=== PATIENT | male | born 1965 | race Two or more races ===

== ENCOUNTER 2017-03-08 13:20 | Emergency (ER) | payer OTHER ==
[2017-03-08 13:44] VITALS: BP 155/103
--- NOTE | 2017-03-08 14:29 | UC ---
Nanci Hilliard Edward, scribed for Rachel Cota MD on 03/08/17 at 1405 . Lower Extremity/Ankle HPI - HPI Summary HPI Summary: 51 y/o male presents to [facility] with R leg pain immediately s/p a 3 foot feet- first jump into water off of a dock 5 days ago. The pain is constant and waxing and waning, located in the mid-hamstring; it is not waking the patient up at night. The pain is aggravated by walking, sitting down and most aggravated when the patient walks downhill. The patient takes 400-600 mg Ibuprofen every 4-6 hours since the injury, which has not alleviated the pain much. Since the jump, the R leg has felt stiff and cramped. Denies neck and knee pain. Associated sx: ecchymosis and edema over R hamstring, mild back pain, chronic numbness in L hip. SHx spinal fusion (march 2013), shoulder repair. PMHx herniated disk, back problems, arthritis. - History of Current Complaint Chief Complaint: UCLowerExtremity Stated Complaint: LEG CRAMP Time Seen by Provider: 03/08/17 13:56 Hx Obtained From: Patient Onset/Duration: Sudden Onset, Lasting Days - 5 days Aggravating Factor(s): Ambulation, Other - Walking downhill Able to Bear Weight: Yes - Risk Factors Gout Risk Factors: Negative DVT Risk Factors: Negative - Allergies/Home Medications Allergies/Adverse Reactions: Allergies Allergy/AdvReac Type Severity Reaction Status Date / Time Lactose Intolerance Allergy GI Upset Verified 09/14/14 06:52 ENVIRONMENTAL Allergy ITCHY Uncoded 09/14/14 06:52 WATERY EYES PMH/Surg Hx/FS Hx/Imm Hx - Additional Past Medical History Additional PMH: Positive: arthritis, back problems, gout, herniated disk Previously Healthy: No - Past cervical fusion GI/ History: Kidney Stones - Surgical History Surgical History: Yes Surgery Procedure, Year, and Place: APNEA CORRECTION TONSILS & SOFT PALATE. DOUBLE TESTICULOR TORSON. C5-6-7 INFUSION 2012 - Family History Known Family History: Positive: Other - Father of strokes Negative: Hypertension, Diabetes - Social History Alcohol Use: Occasionally Substance Use Type: None Smoking Status (MU): Never Smoked Tobacco Have You Smoked in the Last Year: No Review of Systems Constitutional: Negative Skin: Bruising - Ecchymosis over R hamstring Eyes: Negative ENT: Negative Respiratory: Negative Cardiovascular: Negative Gastrointestinal: Negative Genitourinary: Negative Motor: Negative Neurovascular: Negative Musculoskeletal: Arthralgia - Mild back pain. Chronic L hip pain, Edema - Edema over R hamstring, Myalgia - R hamstring pain, Other: - No neck or knee pain Neurological: Negative Psychological: Negative All Other Systems Reviewed And Are Negative: Yes Physical Exam Triage Information Reviewed: Yes Appearance: Well-Appearing, Pain Distress - mild to moderate with activity Vital Signs: Initial Vital Signs Temp 98.7 F 03/08/17 13:40 Pulse 77 03/08/17 13:40 Resp 18 03/08/17 13:40 BP 155/103 03/08/17 13:40 Pulse Ox 99 03/08/17 13:40 Vital Signs Reviewed: Yes ENT Exam: Normal Neck: Positive: Supple, Nontender Respiratory: Positive: Lungs clear, Normal breath sounds Cardiovascular: Positive: RRR, No Murmur, Pulses Normal Musculoskeletal: Positive: Strength Intact, ROM Limited @ - mild restriction of right knee flexion, Other: - large ecchymosis over 1/3 of hamsting area, tracking to posterior knee. Hamstring insertion intact, able to extend leg, flex knee. Gait antalgic. Neurological: Positive: Alert, Muscle Tone Normal, Fatigued Skin Exam: Other - large ecchymosis Lower Extremity Course/Dx - Course Course Of Treatment: nsaid's and hydocodone for pain control - Differential Dx/Diagnosis Differential Diagnosis/HQI/PQRI: Compartment Syndrome, Contusion, Sprain, Strain Provider Diagnoses: right hamstring teat/strain Discharge - Discharge Plan Condition: Stable Disposition: HOME Prescriptions: Hydrocodone-Acetaminophen [Hydrocodone/Acetaminophen 5-325 mg] 1 tab PO Q6HR PRN #20 tab MDD 4 PRN Reason: Pain Meloxicam 7.5 mg PO BID PRN #40 tab PRN Reason: Pain - Moderate Patient Education Materials: Ecchymosis (ED) Referrals: Nolan Ro MD [Primary Care Provider] - Jax Herr MD [Medical Doctor] - Additional Instructions: You have torn your hamstring. Use regular anti-inflammatories for pain control, but stop if you have any increase in gi side effects. Use hydrocodone in addition as needed. You have a referral to sports medicine for evaluation. Your blood pressure is elevated today; please ensure that you have it rechecked once your pain is controlled. The documentation as recorded by the Nanci hernandez Edward accurately reflects the service I personally performed and the decisions made by me, Rachel Cota MD.
== END 2017-03-08 14:40 | disposition home or self-care (01) ==
LOC: UCEAST 13:20
DX: S76.311A Strain of muscle, fascia and tendon of the posterior muscle group at thigh level, right thigh, initial encounter (principal); W16.612A Jumping or diving into natural body of water striking water surface causing other injury, initial encounter; Y93.39 Activity, other involving climbing, rappelling and jumping off; Y92.838 Other recreation area as the place of occurrence of the external cause; Y99.9 Unspecified external cause status
CPT/HCPCS: 99212; G0463

== ENCOUNTER 2018-03-17 16:06 | Emergency (ER) | payer OTHER ==
[2018-03-17 17:06] LABS: ABS Basophils 0 10^3/ul (0-0.2); ABS Eosinophils 0.1 10^3/ul (0-0.6); ABS Monocytes 0.7 10^3/ul (0-0.8); ABS Nucleated RBC 0 10^3/ul; Hematocrit 43 % (42-52); Hemoglobin 14.7 g/dl (14.0-18.0); Lymphocyte % 26.2 % (25-47); Mean Corpuscular HGB Conc 34 g/dl (31-36); Mean Corpuscular Hemoglobin 30 pg (27-31); Mean Corpuscular Volume 90 fL (80-94); Mean Platelet Volume 10.5 um3 (7.4-10.4); Nucleated Red Blood Cells % 0.1; Platelet Count 158 10^3/ul (150-450); Red Blood Count 4.84 10^6/ul (4.00-5.40); Red Cell Distribution Width 13 % (10.5-15); White Blood Count 3.8 10^3/ul (3.5-10.8)
--- NOTE | 2018-03-17 17:26 | RAD ---
INDICATION: Dizziness and expressive aphasia COMPARISON: None. TECHNIQUE: Contiguous axial sections of the brain were obtained from the skull base to the vertex without contrast. FINDINGS: The ventricles, cisterns and sulci are within normal limits. The norwood-white matter differentiation is adequately maintained and there is no sulcal effacement. No significant focal abnormality or mass effect is present. There is no evidence for intracranial hemorrhage. No significant focal osseous abnormality is present. The visualized portion of the paranasal sinuses appear clear. There is partial effusion of the dependent mastoid air cells bilaterally. IMPRESSION: 1. Partial the dependent effusion of the mastoid air cells bilaterally of uncertain clinical significance. 2. Otherwise no CT apparent acute intracranial abnormalities.
[2018-03-17] MEDS ORDERED: NS 0.9% 1000 ML* 1,000 ML IV ONE (17:37)
[2018-03-17] MEDS ORDERED: Meclizine TAB* 12.5 MG PO ONE (17:37)
--- NOTE | 2018-03-17 17:57 | ED ---
Dizziness - HPI Summary HPI Summary: This is [facility] documenting for attending Orlin To MD. Pt is a 52 y/o M c/o dizziness onset upon waking this AM. Pt says he feels as if he is "drunk". Assoc Sx: Fatigue, weakness. He states that he feels very fatigued and weak despite getting 9-10 hours of sleep the following night. Patiant saw PCP earlier today and was referred to the ED. SHx: No Tobacco or EtOH/drug use FHx: Stroke, HTN. - History Of Current Complaint Chief Complaint: EDNeurologicalDeficit Stated Complaint: DIZZINESS/LIGHTHEADED/FATIGUE Time Seen by Provider: 03/17/18 17:11 Hx Obtained From: Patient Onset/Duration: Still Present Character: Dizzy - Feels as if "drunk" Aggravating Factor(s): Nothing Alleviating Factor(s): Nothing Associated Signs And Symptoms: Positive: Other: - POSITIVE: fatigue. Negative: Fever - Allergies/Home Medications Allergies/Adverse Reactions: Allergies Allergy/AdvReac Type Severity Reaction Status Date / Time lactose Allergy GI Upset Verified 11/26/17 08:41 ENVIRONMENTAL Allergy ITCHY Uncoded 11/26/17 08:41 WATERY EYES Home Medications: Home Medications Multivitamin [Animal Shapes] 2 tab.chew PO DAILY 03/17/18 [History Confirmed ] Omeprazole CAP* [Prilosec CAP* 20 MG] 40 mg PO DAILY 03/17/18 [History Confirmed 03/17/18] PMH/Surg Hx/FS Hx/Imm Hx Endocrine/Hematology History: Denies: Hx Diabetes, Hx Thyroid Disease Cardiovascular History: Denies: Hx Hypertension, Hx Pacemaker/ICD Respiratory History: Reports: Hx Sleep Apnea Denies: Hx Asthma, Hx Chronic Obstructive Pulmonary Disease (COPD) GI History: Reports: Hx Gastroesophageal Reflux Disease Denies: Hx Ulcer History: Reports: Hx Kidney Stones - FAIRLY REGULAR Denies: Hx Renal Disease Musculoskeletal History: Reports: Hx Arthritis, Hx Back Problems - cervical radiculopathy, Hx Gout Denies: Hx Rheumatoid Arthritis Sensory History: Reports: Hx Contacts or Glasses Denies: Hx Hearing Aid Opthamlomology History: Reports: Hx Contacts or Glasses Psychiatric History: Denies: Hx Panic Disorder - Surgical History Surgery Procedure, Year, and Place: APNEA CORRECTION TONSILS & SOFT PALATE. DOUBLE TESTICULOR TORSON. C5-6-7 - FUSION 2012. RIGHT SHOULDER 09/2014 Hx Anesthesia Reactions: No - Immunization History Immunizations Up to Date: Yes Infectious Disease History: No Infectious Disease History: Denies: Hx Clostridium Difficile, Hx Hepatitis, Hx Human Immunodeficiency Virus (HIV), Hx of Known/Suspected MRSA, Hx Shingles, Hx Tuberculosis, Hx Known/ Suspected VRE, Hx Known/Suspected VRSA, History Other Infectious Disease, Traveled Outside the [place] in Last 30 Days - Family History Known Family History: Positive: Other - Father of strokes Negative: Hypertension, Diabetes - Social History Occupation: Employed Full-time Lives: With Family Alcohol Use: Occasionally Substance Use Type: Reports: None Smoking Status (MU): Never Smoked Tobacco Have You Smoked in the Last Year: No Review of Systems Positive: Fatigue, Other - POS: dizziness. Negative: Fever Positive: Weakness All Other Systems Reviewed And Are Negative: Yes Physical Exam - Summary Physical Exam Summary: VITAL SIGNS: Reviewed. GENERAL: Patient is a well-developed and nourished male who is lying comfortable in the stretcher. Patient is not in any acute respiratory distress. HEAD AND FACE: No signs of trauma. No ecchymosis, hematomas or skull depressions. No sinus tenderness. EYES: PERRLA, EOMI x 2, No injected conjunctiva, no nystagmus. No photophobia. EARS: Hearing grossly intact. Ear canals and tympanic membranes are within normal limits. MOUTH: Oropharynx within normal limits. NECK: Supple, trachea is midline, no adenopathy, no JVD, no carotid bruit, no c- spine tenderness, neck with full ROM. No meningeal signs, no Kernig's or brudzinskis signs. CHEST: Symmetric, no tenderness at palpation LUNGS: Clear to auscultation bilaterally. No wheezing or crackles. CVS: Regular rate and rhythm, S1 and S2 present, no murmurs or gallops appreciated. ABDOMEN: Soft, non-tender. No signs of distention. No rebound no guarding, and no masses palpated. Bowel sounds are normal. EXTREMITIES: FROM in all major joints, no edema, no cyanosis or clubbing. NEURO: Alert and oriented x 3. No acute neurological deficits. Speech is normal and follows commands. SKIN: Dry and warm GCS: 15 (unless he states otherwise) Triage Information Reviewed: Yes Vital Signs On Initial Exam: Initial Vitals Temp Pulse Resp BP Pulse Ox 98.2 F 66 17 170/102 99 03/17/18 16:07 03/17/18 16:07 03/17/18 16:07 03/17/18 16:07 03/17/18 16:07 Vital Signs Reviewed: Yes Diagnostics - Vital Signs Vital Signs Temp Pulse Resp BP Pulse Ox 03/17/18 16:07 98.2 F 66 17 170/102 99 - Laboratory Lab Results: Lab Results 03/17/18 03/17/18 Range/Units 16:55 16:55 WBC 3.8 (3.5-10.8) 10^3/ul RBC 4.84 (4.00-5.40) 10^6/ul Hgb 14.7 (14.0-18.0) g/dl Hct 43 (42-52) % MCV 90 (80-94) fL MCH 30 (27-31) pg MCHC 34 (31-36) g/dl RDW 13 (10.5-15) % Plt Count 158 (150-450) 10^3/ul MPV 10.5 H (7.4-10.4) um3 Neut % (Auto) 53.1 (38-83) % Lymph % (Auto) 26.2 (25-47) % [place] % (Auto) 17.6 H (0-7) % Eos % (Auto) 2.0 (0-6) % Baso % (Auto) 1.1 (0-2) % Absolute Neuts (auto) 2.0 (1.5-7.7) 10^3/ul Absolute Lymphs (auto) 1.0 (1.0-4.8) 10^3/ul Absolute Monos (auto) 0.7 (0-0.8) 10^3/ul Absolute Eos (auto) 0.1 (0-0.6) 10^3/ul Absolute Basos (auto) 0 (0-0.2) 10^3/ul Absolute Nucleated RBC 0 10^3/ul Nucleated RBC % 0.1 Sodium 138 (135-145) mmol/L Potassium 3.7 (3.5-5.0) mmol/L Chloride 102 (101-111) mmol/L Carbon Dioxide 28 (22-32) mmol/L Anion Gap 8 (2-11) mmol/L BUN 14 (6-24) mg/dL Creatinine 0.98 (0.67-1.17) mg/dL Est GFR ( Amer) 98.0 (>60) Est GFR (Non-Af Amer) 81.0 (>60) BUN/Creatinine Ratio 14.3 (8-20) Glucose 140 H (70-100) mg/dL Calcium 9.2 (8.6-10.3) mg/dL Total Bilirubin 0.40 (0.2-1.0) mg/dL AST 28 (13-39) U/L ALT 33 (7-52) U/L Alkaline Phosphatase 40 (34-104) U/L Total Protein 7.0 (6.4-8.9) g/dL Albumin 4.3 (3.2-5.2) g/dL Globulin 2.7 (2-4) g/dL Albumin/Globulin Ratio 1.6 (1-3) Result Diagrams: 03/17/18 16:55 03/17/18 16:55 Lab Statement: Any lab studies that have been ordered have been reviewed, and results considered in the medical decision making process. - Radiology CXR Xray Interpretation: No Acute Changes - IMPRESSION: No radiographic evidence of acute cardiopulmonary disease. Radiology Interpretation Completed By: Radiologist - Provider has reviewed report. - CT Brain CT Interpretation: Positive (See Comments) - IMPRESSION: 1. Partial the dependent effusion of the mastoid air cells bilaterally of uncertain clinical significance. 2. Otherwise no CT apparent acute intracranial abnormalities. CT Interpretation Completed By: Radiologist - Provider has reviewed report. - EKG 1621 Cardiac Rate: NL - 67 bpm EKG Rhythm: Sinus Rhythm Dizzy Course/Dx - Course Assessment/Plan: This patient is a 52-year-old male who presents to the emergency department with a chief complaint of having dizziness, fatigue and weakness. Hes been having the symptoms for the past month but today he woke up and he was having dizziness. He reports that he fell drunk. He reported that the room is spinning and not feeling good. Patient had this is symptoms on the day he consulted with the primary care physician and he recommended for the patient to come to the emergency room for further workup and management. In the physical exam the patient is found to be within normal limits he has no acute neurological focal deficits. Blood test results without any significant abnormality. Urinalysis is negative For a UTI. Abdominopelvic CT impression : partially dependent infusions of the mastoid air cells bilaterally of uncertain clinical significance. Otherwise no CT appearance of intracranial abnormalities. In the ED course the patient was found to be hypotensive. The patient doesnt have any history of high blood pressure. I offered him labetalol however the patient declined. Patient reports that he does want to take medications. He was advised of the importance of good control the blood pressure however he reports that he will follow with Dr. Ro his primary care physician in order to discuss about medications for high blood pressure. Patient will be discharged home with follow-up with primary care physician. - Diagnoses Differential Diagnosis/HQI/PQRI: Benign Paroxysmal Positional Vertigo, CVA, Meniere's Disease, Seizure, Transient Ischemic Attack, Vasovagal Reaction Provider Diagnoses: Uncontrolled hypertension, Fatigue Discharge - Sign-Out/Discharge Documenting (check all that apply): Patient Departure - Discharge Plan Condition: Stable Disposition: HOME Patient Education Materials: Chronic Hypertension (ED), Fatigue (ED) Referrals: Nolan Ro MD [Primary Care Provider] - 3 Days Additional Instructions: RETURN TO THE ED FOR ANY WORSENING OR NEW SYMPTOMS. FOLLOW UP WITH YOUR PRIMARY CARE PROVIDER WITHIN ONE WEEK FOR HIGH BLOOD PRESSURE NOTED TODAY. - Billing Disposition and Condition Condition: STABLE Disposition: Home
[2018-03-17 18:24] LABS: Urine Appearance Clear; Urine Blood 1+ (Negative); Urine Color Straw; Urine Ketones Negative (Negative); Urine Protein Negative (Negative); Urine Red Blood Cell Trace(0-2/hpf) (Absent); Urine Specific Gravity 1.006 (1.010-1.030); Urine Urobilinogen Negative (Negative); Urine White Blood Cell Absent (Absent)
[2018-03-17] MEDS ORDERED: Labetalol IV* 5 MG/ML 20 ML VIAL IV PUSH ONE (18:48)
--- NOTE | 2018-03-17 19:24 | RAD ---
INDICATION: Dizziness COMPARISON: Most recent comparison chest x-rays dated March 01, 2013 TECHNIQUE: PA and lateral views of the chest were obtained. FINDINGS: The heart and mediastinum are normal in size and contour. The lungs are grossly clear. There is no evidence of large pleural effusion. Is been interval placement of a plate and screw fixator overlying the midline cervical spine. There is no radiographic evidence of free air beneath the diaphragm IMPRESSION: No radiographic evidence of acute cardiopulmonary disease.
[2018-03-17 19:42] VITALS: BP 167/110
== END 2018-03-17 20:02 | disposition home or self-care (01) ==
LOC: ED 16:06
DX: R53.83 Other fatigue (principal); I10 Essential (primary) hypertension; R42 Dizziness and giddiness
CPT/HCPCS: 36415; 70450; 71046; 80053; 81003; 81015; 84403; 85025; 93005; 96360; 99283; A9270-GY

== ENCOUNTER 2018-07-21 15:28 | Inpatient (IN) | payer OTHER ==
--- OUTSIDE RECORDS SUMMARY | 2018-07-21 15:47 | XMS REPORT | Continuity of Care Document ---
:1965 External Reference #:[id number] Author Name Kelley Moreland Care Team Providers Name Role Phone Ayo Aquino MD Care Team Information Fire Official Unavailable Nolan Ro MD Primary Care Physician Unavailable Payers Type Date Identification Numbers Payment Provider Subscriber Policy Number: [id number] [employer] Lucius Devinejoanne AARON Group Number: [id number] [address] PayID: [id number] [place] [address] Onset: 2013 Policy Number: [id number] [facility] Lucius Arringtonmata AARON Group Number: [id number] [address] [place] [address] Advance Directives Description No Information Available Problems Date Description Provider Status Onset: 05/18/2015 Obstructive sleep apnea syndrome Libby Hamlin MD Active Onset: 05/18/2015 Malaise and fatigue Libby Hamlin MD Active Family History Date Family Member(s) Problem(s) Comments General heart disease General cancer Father due to at age 69 () Father Stroke Mother alive 70 Mother Arthritis Siblings 1 Siblings 1 sisiter lymes disease Social History Type Date Description Comments Sex Unknown Marital Status Lives With Family Lives With Occupation Currently Working ETOH Use Occasionally consumes alcohol Tobacco Use Start: Unknown Patient has never smoked Recreational Drug Use Denies Drug Use Smoking Status Reviewed: 07/16/18 Patient has never smoked Exercise Type/Frequency Exercises regularly Allergies, Adverse Reactions, Alerts Description No Known Drug Allergies Medications Medication Date Status Form Strength Qnty SIG Indications Ordering Provider Ibuprofen // Active Unknown 0000 Clomiphene Citrate / Active Tablets 50mg 1 by Unknown 0000 mouth every day Omeprazole / Active Capsules 40mg [address] mouth every day Hydrochlorothiazide / Active Tablets 25mg 1 by Unknown 0000 mouth every day Tadalafil / Active Tablets 5mg prn Unknown 0000 Oxycodone-Acetaminoph Tablets 5-325mg 45tab 1-2 Ulisses en 2014 - s tabs Rober 05/17/ noemi Arellano 2015 mouth every 4 hours for pain Tramadol HCL / Hx Unknown 0000 - 2014 Medications Administered in Office Medication Date Status Form Strength Qnty SIG Indications Ordering Provider Inj, Administered Injection Obed S. Regadenoson, 018 Coates, DO 0.1 MG FACC Technetium TC Administered Injection Obed S. 99M 018 Coates, DO Tetrofosmin, FACC Per Unit Dose Up To 40 Millicuries Depomedrol Administered Injection Ulisses 80MG 014 Eileen Richter Immunizations Description No Information Available Vital Signs Date Vital Result Comment 07/16/2018 1:19pm Height 71 inches 5'11" Weight 201.00 lb Heart Rate 80 /min BP Systolic Sitting 128 mmHg BP Diastolic Sitting 80 mmHg Respiratory Rate 14 /min O2 % BldC Oximetry 98 % BMI (Body Mass Index) 28.0 kg/m2 08/27/2017 9:26am Height 71 inches 5'11" Weight 200.00 lb Heart Rate 75 /min BP Systolic Sitting 126 mmHg BP Diastolic Sitting 74 mmHg Pain Level 2 BMI (Body Mass Index) 27.9 kg/m2 08/25/2017 9:07am Height 72 inches 6'0" Weight 201.00 lb Heart Rate 72 /min BP Systolic Sitting 114 mmHg BP Diastolic Sitting 82 mmHg Respiratory Rate 14 /min O2 % BldC Oximetry 95 % BMI (Body Mass Index) 27.3 kg/m2 05/18/2015 11:25am Height 72 inches 6'0" Weight 186.25 lb Heart Rate 86 /min BP Systolic 140 mmHg BP Diastolic 98 mmHg Respiratory Rate 14 /min Body Temperature 98.6 F O2 % BldC Oximetry 98 % BMI (Body Mass Index) 25.3 kg/m2 Neck Circumference in inches 15 12/06/2014 9:03am Height 72 inches 6'0" Weight 180.00 lb Body Temperature 97.1 F Pain Level 1 BMI (Body Mass Index) 24.4 kg/m2 10/25/2014 11:41am Height 72 inches 6'0" Weight 180.00 lb Pain Level 2 BMI (Body Mass Index) 24.4 kg/m2 09/27/2014 10:02am Height 72 inches 6'0" Weight 180.00 lb Body Temperature 98.4 F BMI (Body Mass Index) 24.4 kg/m2 09/06/2014 9:42am Height 73 inches 6'1" Weight 185.00 lb Heart Rate 75 /min BP Systolic Sitting 148 mmHg BP Diastolic Sitting 111 mmHg Respiratory Rate 20 /min Pain Level 5 BMI (Body Mass Index) 24.4 kg/m2 07/28/2014 8:37am Height 73 inches 6'1" Weight 185.00 lb Heart Rate 87 /min BP Systolic 142 mmHg BP Diastolic 103 mmHg Pain Level 2 BMI (Body Mass Index) 24.4 kg/m2 06/16/2014 8:32am Height 73 inches 6'1" Weight 185.00 lb Heart Rate 72 /min BP Systolic 131 mmHg BP Diastolic 88 mmHg Pain Level 2 BMI (Body Mass Index) 24.4 kg/m2 06/06/2014 10:25am Height 73 inches 6'1" Weight 185.00 lb Heart Rate 70 /min BP Systolic 142 mmHg BP Diastolic 90 mmHg BMI (Body Mass Index) 24.4 kg/m2 Results Description No Information Available Procedures Date Code Description Status 06/17/2018 18687 Myocardial Perfusion Imaging Tomographic (Spect) Completed Multiple Studies 06/17/2018 20931 Stress Test Completed 06/08/2018 94154 Stress Test Completed 10/30/2017 02115 Endoscopy Upper GI Biopsy Completed 10/30/2017 74021460 Colonoscopy Completed 09/14/2014 13055 Arthroscopy,Shoulder Decompression Of Subacromial Space Completed W/Acromio 09/14/2014 05078 Arthroscopy,Shoulder Decompression Of Subacromial Space Completed W/Acromio 09/14/2014 72743 Arthroscopy,Shoulder Decompression Of Subacromial Space Completed W/Acromio 09/14/2014 58660 Arthroscopy,Shoulder Decompression Of Subacromial Space Completed W/Acromio 09/14/2014 02480 Arthroscopy Shoulder Debridement Extensive Completed 09/14/2014 27546 Arthroscopy Shoulder Debridement Extensive Completed 09/14/2014 30981 Arthroscopy Shoulder Debridement Extensive Completed 09/14/2014 37161 Arthroscopy Shoulder Debridement Extensive Completed 06/16/2014 48505 Inject/Drain Joint/Bursa Major W/O US Completed 12/11/2012 96966 Nerve Conduction 07-08 Studies Completed 12/11/2012 70721 Needle Electromyography Complete, Five Or More Muscles Completed Studied Encounters Type Date Location Provider Dx Diagnosis Office Visit 08/27/2017 Neurosurgery Rajani Hendrixtz, 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 Cuff (Capsule) Office Visit 06/16/2014 8:45a Orthopedic Antonia Perea6.13 Partial Tear Of [facility] Rotator Cuff C.M.A. 840.4 Sprains & Strains Rotator Cuff (Capsule) 840.6 Sprains & Strains Supraspinatus (Muscle)(Tendon) Office Visit 06/06/2014 10:00a Adolfo Richter 726.13 Partial Tear Of [facility] Rotator Cuff C.M.A. Office Visit 01/21/2013 8:00a Adolfo Richter 723.4 Brachial Neuritis [facility] Or Radiculitis NOS C.M.A. 354.0 Carpal Tunnel Syndrome Office Visit 12/11/2012 2:00p Anuradha Knigth3.4 Brachial Neuritis [facility] Mohr M.D. Or Radiculitis NOS 354.0 Carpal Tunnel Syndrome Office Visit 01/08/2010 Orthopedic Ruslan Baptiste.2 Shoulder Region 1:00p Services Of [facility], Affections Other C.M.A. R.S.A.-O Not Elsewhere Class Plan of Treatment Future Appointment(s):09/09/2018 9:00 am - Libby Hamlin MD at [facility]09/01/2018 10:30 am - Johnson Zaldivar M.D. at [facility]/16/2018 - Libby Hamlin, MDR07.9 Chest pain, unspecifiedNew Orders:PFTW/Spirometry Vol Pre/Post Bronchdilat Dlco Complete, Ordered: 07/16/18Methacholine Challenge, Ordered: 07/16/18ollow up:1 wddvaQ23.4 Other disorders of lungK21.0 Gastro-esophageal reflux disease with yhygnotkxszY95.33 Obstructive sleep apnea (adult) (pediatric)
[2018-07-21 17:42] LABS: ABS Basophils 0.1 10^3/ul (0-0.2); ABS Eosinophils 0.1 10^3/ul (0-0.6); ABS Lymphocytes 2.5 10^3/ul (1.0-4.8); ABS Monocytes 0.6 10^3/ul (0-0.8); ABS Neutrophils 4.7 10^3/ul (1.5-7.7); ABS Nucleated RBC 0 10^3/ul; Eosinophil % 1.8 %; Hematocrit 46 % (42-52); Hemoglobin 16.1 g/dl (14.0-18.0); Lymphocyte % 30.7 %; Mean Corpuscular HGB Conc 35 g/dl (31-36); Mean Corpuscular Hemoglobin 31 pg (27-31); Mean Corpuscular Volume 89 fL (80-94); Mean Platelet Volume 10.8 fL (7.4-10.4); Nucleated Red Blood Cells % 0.2; Platelet Count 201 10^3/ul (150-450); Red Blood Count 5.18 10^6/ul (4.00-5.40); Red Cell Distribution Width 13 % (10.5-15)
[2018-07-21 17:51] LABS: INR 0.94 (0.77-1.02)
[2018-07-21 18:01] LABS: EGFR Non-African American 50.9 (>60)
--- NOTE | 2018-07-21 18:05 | ED ---
HPI Chest Pain - HPI Summary HPI Summary: Patient is a 53 y/o M w/ c/o chest pain, SOB, and fatigue. Exertion is reported to aggravate these Sx. He states that he began to experience Sx this past summer. Patient was noted to have high BP, patient was prescribed medications, which helped alleviate Sx at the time. He states that he began to experience Sx once more this past April. He had a cardiac stress test which returned negative. Patient was referred to engraver set up operator, had appointment, was told that they would call back for more tests but they did not do so. He called today, was told to come to ED for possible blood clot. Patient notes that the chest pain has awoken his during a couple of nights. Pain is reported to have been progressively worsening over the past few weeks. In room, BP is 164/104. Patient denies ever smoking cigarettes. PMHx of HTN, denies Hx of diabetes, respiratory disease, cardiac disease, sick contacts. Hx of chepe-díaz this past summer. On triage, pain is rated 2/10, exercise is noted to aggravate Sx, nothing is noted to alleviate Sx. Home medications and allergies are reviewed. - History of Current Complaint Chief Complaint: EDChestPainROMI Time Seen by Provider: 07/21/18 17:48 Hx Obtained From: Patient Onset/Duration: Started Weeks Ago - since , Still Present, Worse Since - a few weeks Timing: Constant, Lasting Weeks Initial Severity: Mild Current Severity: Mild - 2/10 Pain Intensity: 2 Pain Scale Used: 0-10 Numeric - 2/10 Chest Pain Radiates: No Character: Exertion Aggravating Factor(s): Exertion Alleviating Factor(s): Nothing Associated Signs and Symptoms: Positive: Chest Pain, Shortness of Breath, Other : - fatigue - Allergy/Home Medications Allergies/Adverse Reactions: Allergies Allergy/AdvReac Type Severity Reaction Status Date / Time lactose Allergy GI Upset Verified 07/21/18 18:01 ENVIRONMENTAL Allergy ITCHY Uncoded 07/21/18 18:01 WATERY EYES PMH/Surg Hx/FS Hx/Imm Hx Endocrine/Hematology History: Denies: Hx Diabetes, Hx Thyroid Disease Cardiovascular History: Denies: Hx Hypertension, Hx Pacemaker/ICD Respiratory History: Reports: Hx Sleep Apnea Denies: Hx Asthma, Hx Chronic Obstructive Pulmonary Disease (COPD) GI History: Reports: Hx Gastroesophageal Reflux Disease Denies: Hx Ulcer History: Reports: Hx Kidney Stones - FAIRLY REGULAR Denies: Hx Renal Disease Musculoskeletal History: Reports: Hx Arthritis, Hx Back Problems - cervical radiculopathy, Hx Gout Denies: Hx Rheumatoid Arthritis Sensory History: Reports: Hx Contacts or Glasses Denies: Hx Hearing Aid Opthamlomology History: Reports: Hx Contacts or Glasses Psychiatric History: Denies: Hx Panic Disorder - Surgical History Surgery Procedure, Year, and Place: APNEA CORRECTION TONSILS & SOFT PALATE. DOUBLE TESTICULOR TORSON. C5-6-7 - FUSION 2012. RIGHT SHOULDER 09/2014 Hx Anesthesia Reactions: No Infectious Disease History: No Infectious Disease History: Denies: Hx Clostridium Difficile, Hx Hepatitis, Hx Human Immunodeficiency Virus (HIV), Hx of Known/Suspected MRSA, Hx Shingles, Hx Tuberculosis, Hx Known/ Suspected VRE, Hx Known/Suspected VRSA, History Other Infectious Disease, Traveled Outside the in Last 30 Days - Family History Known Family History: Positive: Other - Father of strokes Negative: Hypertension, Diabetes - Social History Alcohol Use: Occasionally Substance Use Type: Reports: None Hx Tobacco Use: No Smoking Status (MU): Never Smoked Tobacco Have You Smoked in the Last Year: No Review of Systems Positive: Fatigue Positive: Chest Pain Positive: Shortness Of Breath All Other Systems Reviewed And Are Negative: Yes Physical Exam - Summary Physical Exam Summary: Appearance: Well-appearing, Well-nourished, lying in bed comfortably Skin: Warm, dry, no obvious rash Eyes: sclera anicteric, no conjunctival pallor ENT: mucous membranes moist, pharynx appears normal Neck: Supple, nontender Respiratory: Clear to auscultation, no signs of respiratory distress Cardiovascular: Normal S1, S2. No murmurs. Normal distal pulses in tibial and radial bilaterally. Abdomen: Soft, nontender, normal active bowel sounds present Musculoskeletal: Normal, Strength/ROM Intact Neurological: A&Ox3, awake and alert, mentation is normal, speech is fluent and appropriate Psychiatric: affect is normal, does not appear anxious or depressed Triage Information Reviewed: Yes Vital Signs On Initial Exam: Initial Vitals Temp Pulse Resp BP Pulse Ox 98.4 F 74 18 160/106 100 07/21/18 15:31 07/21/18 15:31 07/21/18 15:31 07/21/18 15:31 07/21/18 15:31 Vital Signs Reviewed: Yes Diagnostics - Vital Signs Vital Signs Temp Pulse Resp BP Pulse Ox 07/21/18 15:31 98.4 F 74 18 160/106 100 - Laboratory Lab Results: Lab Results 07/21/18 07/21/18 Range/Units 17:29 17:29 WBC 8.0 (3.5-10.8) 10^3/ul RBC 5.18 (4.00-5.40) 10^6/ul Hgb 16.1 (14.0-18.0) g/dl Hct 46 (42-52) % MCV 89 (80-94) fL MCH 31 (27-31) pg MCHC 35 (31-36) g/dl RDW 13 (10.5-15) % Plt Count 201 (150-450) 10^3/ul MPV 10.8 H (7.4-10.4) fL Neut % (Auto) 58.9 % Lymph % (Auto) 30.7 % Bollinger % (Auto) 7.7 % Eos % (Auto) 1.8 % Baso % (Auto) 0.9 % Absolute Neuts (auto) 4.7 (1.5-7.7) 10^3/ul Absolute Lymphs (auto) 2.5 (1.0-4.8) 10^3/ul Absolute Monos (auto) 0.6 (0-0.8) 10^3/ul Absolute Eos (auto) 0.1 (0-0.6) 10^3/ul Absolute Basos (auto) 0.1 (0-0.2) 10^3/ul Absolute Nucleated RBC 0 10^3/ul Nucleated RBC % 0.2 INR (Anticoag Therapy) 0.94 (0.77-1.02) APTT 31.2 (26.0-36.3) seconds Result Diagrams: 07/22/18 06:30 07/22/18 06:30 Lab Statement: Any lab studies that have been ordered have been reviewed, and results considered in the medical decision making process. - Radiology CXR Radiology Interpretation Completed By: ED Physician Summary of Radiographic Findings: NAD - EKG 1537 Cardiac Rate: NL - rate of 71 bpm EKG Rhythm: Sinus Rhythm Summary of EKG Findings: Normal EKG: NSR at 71 BPM, P waves, QRS complex, and T waves are within normal limits, T waves and intervals are normal, no ischemic changes. This is a normal EKG Chest Pain Course/Dx - Course Course Of Treatment: Patient is a 53 y/o M w/ c/o chest pain, SOB, and fatigue. Exertion is reported to aggravate these Sx. He states that he began to experience Sx this past summer. Patient was noted to have high BP, patient was prescribed medications, which helped alleviate Sx at the time. He states that he began to experience Sx once more this past April. He had a cardiac stress test which returned negative. Patient was referred to engraver set up operator, had appointment, was told that they would call back for more tests but they did not do so. He called today, was told to come to ED for possible blood clot. Patient notes that the chest pain has awoken his during a couple of nights. Pain is reported to have been progressively worsening over the past few weeks. In room, BP is 164/104. Patient denies ever smoking cigarettes. PMHx of HTN, denies Hx of diabetes, respiratory disease, cardiac disease, sick contacts. Hx of chepe- díaz this past summer. Physical exam was normal. Normal EKG: NSR at 71 BPM, P waves, QRS complex, and T waves are within normal limits, T waves and intervals are normal, no ischemic changes. This is a normal EKG. CXR showed NAD. Labs showed MPV 10.8, d-dimer < 200, TSH 5.14. First trop was 0.31, second was 0.29. Patient case was discussed with Dr. Ro at 1857. Direct Care Professional to be consulted. 1942 - Dr. Espinal was consulted, admission was recommended. 1957 - Discussed case with Dr. Simpson, Dr. Simpson accepts for admission. - Diagnoses Provider Diagnoses: Chest pain, Acute coronary syndrome - Provider Notifications Discussed Care Of Patient With: Nolan Ro Time Discussed With Above Provider: 18:58 Instructed by Provider To: Other - Patient case was discussed with Dr. Ro at 1857. Direct Care Professional to be consulted. 1942 - Dr. Espinal was consulted, admission was recommended. 1957 - Discussed case with Dr. Simpson, Dr. Simpson accepts for admission. Discharge - Sign-Out/Discharge Documenting (check all that apply): Patient Departure - admit - Discharge Plan Condition: Good Disposition: ADMITTED TO [facility] - Billing Disposition and Condition Condition: GOOD Disposition: Admitted to [facility] - Attestation Statements Document Initiated by Joelle: Yes Documenting Scribe: MARGO WHEELER Provider For Whom Joelle is Documenting (Include Credential): DORINDA ZALDIVAR MD Scribjavi Attestation: MARGO Hilliard , scribed for DORINDA ZALDIVAR MD on 07/22/18 at 1019. Scribe Documentation Reviewed: Yes Provider Attestation: The documentation as recorded by the MARGO hernandez accurately reflects the service I personally performed and the decisions made by me, DORINDA ZALDIVAR MD Status of Scribe Document: Viewed
[2018-07-21 19:30] LABS: EGFR Non-African American 62.6 (>60)
[2018-07-21] MEDS ORDERED: Iodixanol* (CONTRAST) 320 MG/ML 100 ML SDV IV ONE (20:07)
[2018-07-21] MEDS ORDERED: Al Hydrox/Mg Hydrox/Simet LIQ* 30 ML UDC PO PRN (21:00)
[2018-07-21] MEDS ORDERED: Acetaminophen TAB* 325 MG PO PRN (21:00)
[2018-07-21] MEDS ORDERED: Ondansetron INJ* 2 MG/ML VIAL IV PRN (21:00)
[2018-07-21] MEDS ORDERED: Aspirin EC TAB* 325 MG PO ONE (21:04)
[2018-07-21] MEDS ORDERED: Potassium Chlor TAB* 20 MEQ TAB.ER PO ONE (21:15)
[2018-07-21] MEDS ORDERED: Heparin DRIP 25,000 UNITS(*) 25,000 UNITS/500 ML BAG IV SCH (21:30)
[2018-07-21] MEDS ORDERED: Heparin VIAL(*) 5000 UNITS/ML VIAL (FIVE THOUSAND) IV PRN (21:53)
[2018-07-21] MEDS: Metoprolol Tartrate TAB* 25 MG PO SCH (22:36)
--- NOTE | 2018-07-22 03:39 | HP ---
CC: Nolan Ro MD * HISTORY AND PHYSICAL: DATE OF ADMISSION: 07/21/18 TIME OF EVALUATION: 2100. PRIMARY CARE PHYSICIAN: Nolan Ro MD CHIEF COMPLAINT: Chest pain and dyspnea on exertion. HISTORY OF PRESENT ILLNESS: This is a 53-year-old male with past medical history of hypertension, obstructive sleep apnea, who presents to the emergency room with worsening dyspnea on exertion and exertional chest pain. The patient states around January, he came to the emergency room for chest pain. At that time , he was diagnosed with high blood pressure and was sent home on hydrochlorothiazide. He also had mononucleosis over the summer and then he states in April, he began developing dyspnea on exertion with getting short of breath just going up flight of stairs, which was unusual for him. He went to see Dr. Ro, who sent him for a stress test. He failed the exercise stress test as he could not get his heart rate up and had a chemical stress test. He was told it was unremarkable. His shortness of breath was continuing to get worse. He did see Dr. Hamlin. He was given an inhaler and stated to see if that would help his symptoms and they were planning to setup more further workup for him. He states the inhaler did not help him. He states now he was developing chest pain with exertion for the past month and his shortness of breath was getting worse. He states this morning, he was getting ready, getting breakfast ready for his kids. It normally takes him half an hour, took him an hour and he felt just entirely wiped out. He had to have his colleague drive him back to his office because he was having a hard time ambulating due to shortness of breath. He states he had a chronic cough from his sleep apnea, but nothing worse recently. No recent fever, no URI illness. No changes in his weight. No lower extremity swelling. No changes in his medications. Otherwise, review of systems is negative. In the emergency room, the patient had labs, imaging, and he was referred to the hospitalist service for further evaluation. Dr. Espinal was contacted in the setting of his elevated troponin, recommended getting a CTA. PAST MEDICAL HISTORY: 1. Hypertension. 2. History of obstructive sleep apnea, status post corrective surgery, on CPAP at night. PAST SURGICAL HISTORY: Neck fusion and shoulder surgery, history of double testicular torsion. MEDICATIONS: 1. Omeprazole 40 mg p.o. daily. 2. Hydrochlorothiazide 12.5 mg p.o. daily in the morning. 3. Loratadine as needed. 4. Ibuprofen as needed. ALLERGIES: LACTOSE, ENVIRONMENTAL. FAMILY HISTORY: His mother is alive at age 80 and healthy. Father at age 69 from a stroke. No family history of early coronary artery disease. SOCIAL HISTORY: The patient lives at home with his and his 2 boys. No history of smoking. He has 1 drink per week. No illicit drugs. 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 His healthcare proxy is his . Code status is full code. REVIEW OF SYSTEMS: A 14-point review of systems as mentioned in the HPI, otherwise negative. PHYSICAL EXAMINATION GENERAL: No acute distress, resting comfortably. VITALS: Temp 98.4, pulse rate 73, respiratory rate 14, oxygen saturation 97% on room air, and blood pressure 165/105. HEENT: Head normocephalic. Pupils are equal and reactive. Anicteric. Oropharynx: Mucous membranes are moist. NECK: Supple. No lymphadenopathy. RESPIRATORY: Clear to auscultation. No wheezes, rhonchi, or rales. CARDIAC: Regular rate and rhythm. Diastolic murmur most prominent at the left apex. No carotid bruits appreciated. ABDOMEN: Soft, nontender, nondistended. EXTREMITIES: No clubbing, cyanosis, or edema. +1 DPs. NEUROLOGIC: Alert and oriented x3. No gross focal neurologic deficits. DIAGNOSTIC STUDIES/LAB DATA: White count 8, hemoglobin 16.1, hematocrit 46, platelets 201. INR is 0.94. D-dimer is less than 200. Sodium 137, potassium 3.4, chloride 103, bicarb 25, BUN 21, creatinine 1.22. Troponin is 0.31, then 0.29 and 0.26. TSH is 5.14. Radiographic data: Chest x-ray is unremarkable, wet read. EKG shows normal sinus rhythm. No specific ST changes. ASSESSMENT AND PLAN: This is a 53-year-old male with a past medical history of hypertension, obstructive sleep apnea, who presents to the emergency room with worsening dyspnea on exertion and exertional chest pain, found to have an elevated troponin. Dyspnea on exertion and exertional chest pain. Assessment: The patient with an elevated troponin. He is currently chest pain free. He states he does not get symptoms when he is at rest. Concern is for an non-ST elevation myocardial infarction. He is just got back from a CTA done, which is pending, although he has negative D- dimer so this essentially rules out pulmonary embolism. Plan: We will admit him to telemetry. We will start him on heparin drip for presumed non-ST elevation myocardial infarction. He is chest pain free. As mentioned, we will start him on metoprolol 12.5 mg b.i.d. We will give him full dose aspirin now. Continue him on baby aspirin. Check lipid panel. Continue to trend his troponin. Follow up with Cardiology in the morning. Keep him n.p.o. 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 We will repeat his labs in the morning as well and replete his magnesium. CHRONIC MEDICAL PROBLEMS: 1. Obstructive sleep apnea. Continue his CPAP. 2. GERD. Continue his omeprazole. 3. Hypertension. We will hold his hydrochlorothiazide in the setting of being n.p.o. after midnight, continuing on metoprolol and titrate accordingly. 4. FEN. Heart healthy diet, n.p.o. after midnight. 5. DVT prophylaxis. The patient scores moderate risk. He will be placed on a heparin drip. TIME SPENT: Greater than 45 minutes spent doing the history and physical, more than half the time spent in direct patient contact. [id number]/[facility] #: [id number] TATI
[2018-07-22] MEDS ORDERED: Omeprazole CAP* 20 MG PO SCH (06:00)
[2018-07-22 06:43] LABS: ABS Basophils 0.1 10^3/ul (0-0.2); ABS Eosinophils 0.2 10^3/ul (0-0.6); ABS Lymphocytes 2.2 10^3/ul (1.0-4.8); ABS Monocytes 0.6 10^3/ul (0-0.8); ABS Nucleated RBC 0.1 10^3/ul; Eosinophil % 2.5 %; Hematocrit 46 % (42-52); Hemoglobin 15.7 g/dl (14.0-18.0); Lymphocyte % 31.3 %; Mean Corpuscular HGB Conc 34 g/dl (31-36); Mean Corpuscular Hemoglobin 31 pg (27-31); Mean Corpuscular Volume 89 fL (80-94); Mean Platelet Volume 10.8 fL (7.4-10.4); Platelet Count 195 10^3/ul (150-450); Red Blood Count 5.14 10^6/ul (4.00-5.40); Red Cell Distribution Width 13 % (10.5-15); White Blood Count 7.1 10^3/ul (3.5-10.8)
[2018-07-22 07:29] LABS: EGFR Non-African American 77.9 (>60)
[2018-07-22] MEDS ORDERED: Aspirin 81 mg CHEW TAB* 81 MG TAB.CHEW PO SCH (09:00)
[2018-07-22] MEDS ORDERED: Atorvastatin* 80 MG TAB PO SCH (10:30)
[2018-07-22] MEDS: Metoprolol Tartrate TAB* 25 MG PO SCH (10:57)
[2018-07-22] MEDS ORDERED: fentaNYL* 50 MCG/ML 2 ML VIAL (100 MCG VIAL) ONE (11:00)
[2018-07-22] MEDS ORDERED: nitroGLYCERIN DRIP* 25,000 MCG/250 ML BTL ONE (11:00)
[2018-07-22] MEDS ORDERED: VERAPAMIL 2.5 MG/ML 2 ML VIAL ** 5 mg/2 ml ONE (11:00)
[2018-07-22] MEDS ORDERED: NS 0.9% 1000 ML* 1,000 ML IV SCH (11:00)
[2018-07-22] MEDS ORDERED: Heparin(*) 1000 UNIT/ML 10 ML VIAL CATH LAB IV ONE (11:00)
[2018-07-22] MEDS ORDERED: Heparin 2 UNITS/ML IVPREMIX* 3,000 ML IV ONE (11:00)
[2018-07-22] MEDS ORDERED: Midazolam* 1 MG/ML 10 ML VIAL (10 MG) ONE (11:00)
[2018-07-22] MEDS ORDERED: Iohexol 350 (CONTRAST) 200 ML MDV IV ONE (11:01)
[2018-07-22] MEDS ORDERED: Lidocaine 1% INJ* 10 MG/ML 30 ML SDV ONE (11:01)
[2018-07-22] MEDS ORDERED: Bivalirudin(*) 250 MG VIAL ONE (11:48)
[2018-07-22] MEDS ORDERED: Heparin DRIP 25,000 UNITS(*) 25,000 UNITS/500 ML BAG ONE (12:26)
--- NOTE | 2018-07-22 13:47 | CONS ---
CC: Nolan Ro MD; Hospitalist Service CONSULTATION REPORT: DATE OF CONSULT: 07/21/18 REASON FOR CONSULT: Chest pain and elevated troponins. CHIEF COMPLAINT: Chest pain and exertional dyspnea. HISTORY OF PRESENT ILLNESS: Mr. Taylor is a 53-year-old gentleman who started to have chest pain in January and February of 2018. He presented to the emergency room on 03/17/18 and was discharged to home and told that he had high blood pressure. He followed up with his primary care physician, Dr. Ro who started hydrochlorothiazide. He was also diagnosed with Somemr-Goins virus over the summer. In April, he started to have exertional dyspnea on the stairs and underwent a treadmill stress test with Cardiology in [facility] which was unremarkable. The patient was referred to Pulmonary and GI. Pulmonary determined that he had some asthma and he did use the inhalers prescribed which made him feel worse. The patient had upper endoscopy which showed no evidence of gastritis or ulcers. The patient's progressive symptoms have been marked and his son just this week made his mother come see him upstairs because his 14-year-old son thought his father looked bad. Currently, the patient is resting and free of pain. He denies orthopnea or PND , he denies new swelling of the legs. PAST MEDICAL HISTORY: The patient has a past medical history of: 1. Hypertension. 2. EB virus, 2018. 3. Multiple orthopedic issues. 4. Calcium oxalate kidney stones. 5. Testicular torsion. 6. Obstructive sleep apnea. 7. Gastritis per upper endoscopy, October 2017. 8. On 03/17/18, dizzy and expressive aphasia (CT negative). PAST SURGICAL HISTORY: Includes: 1. Double testicular torsion surgeries. 2. Neck fusion. 3. Right shoulder arthroplasty. MEDICATIONS: Current inpatient medications include: 1. Tylenol p.r.n. 2. Maalox p.r.n. 3. Aspirin 81 mg a day. 4. Lipitor 80 mg a day (not yet given). 5. Heparin drip (not yet started). 6. Lopressor 12.5 mg b.i.d. 7. Prilosec 40 mg a day. 8. Zofran p.r.n. ALLERGIES: The patient is allergic to LACTOSE and some environmental allergies but no known medication allergies. FAMILY HISTORY: Significant in that his father had a stroke in his 60s, his father was adopted, so additional family history is not known on that side. His mother is 80 and doing well. His sister has no cardiac history but has a history of breast cancer. SOCIAL HISTORY: The patient is with 2 children, never smoked. Occasional alcohol, weekly. No history of alcohol abuse, no history of cocaine use. He works at [employer] and has never had any regular exercise. REVIEW OF SYSTEMS: Negative orthopnea, PND. Positive for exertional chest pain and exertional dyspnea as above. Negative for fevers, chills, sweats. Fatigue is improving. No recent swelling in the legs. Appetite has been good. No constipation or diarrhea. All other review of systems is unremarkable. PHYSICAL EXAM: The patient is 6 feet, weighs 200 pounds with a BMI of 27. Vital Signs in the Emergency Room: Blood pressure 160/106, pulse is 74 and regular, oxygen saturation 97% and he is afebrile. Currently blood pressure 134 /76, pulse is 66, oxygen saturation 96%. General Appearance: Mild to moderately overweight older middle-aged gentleman lying at 30 degrees in no acute distress. Psychologically pleasant and cooperative. Neurological: Awake , alert, and oriented to person, place, and time. Cranial nerves II through XII are intact. Grossly normal sensory and motor function in the upper and lower extremities. Gait not checked. Skin: Warm and dry. No cyanosis or rashes. HEENT: Pupils are equal and round. Mucous membranes are moist. Neck : Without increased JVP. 2 to 3+ carotid pulses, free of bruits. Lungs: Breath sounds were clear with good effort. No wheezes, rales, rhonchi. Coronary: S1 and S2 regular without murmurs or rubs. Abdomen: Active bowel sounds, soft, nontender. No hepatosplenomegaly or masses. Extremities: Lower extremities free of edema. Strong femoral pulses, free of bruits. Strong dorsalis pedis pulses and strong radial pulses all symmetrical. DIAGNOSTIC STUDIES/LAB DATA: CT of the chest, 07/21/18, multivessel coronary artery calcifications, negative for PE. Upper endoscopy, 10/30/17, mild distal esophagitis, no erosions, mild antral gastritis. A 12-lead ECG on 03/17/18, normal sinus rhythm, 67 beats per minute, QRS axis + 60 with normal AV and IV conduction times and normal ST segments. EKG #1 here, 07/21/18 at 1533, normal sinus rhythm, 71 beats per minute, QRS axis +45, normal AV and IV conductions times with inverted T waves in the inferior leads III and aVF. EKG #2 done this morning at 8:00, shows sinus rhythm, 60 beats per minute, QRS axis +45, normal AV and IV conduction times, subtle ST-depression in the inferior leads and persistent inverted T waves in III and aVF. Chest x-ray, no acute disease. Stress tests at [facility] May reviewed: #1: TM stress, poor exercise capacity, did not hit target, hypertensive and ST changes in recovery. #2 Chemical myoview: Interp. as normal. Inferior defect noted by me. Labs showed white 7.1, hemoglobin 15.7, hematocrit 46, platelets 195,000. INR 0.94, PTT 30.4. D-dimer less than 200. Sodium 138, potassium 4.0, chloride 104 , bicarb 25, BUN 18, creatinine 1.01, glucose 104, magnesium 2.0, ALT 26, AST 29. Troponin #1 is 0.31, troponin #2 is 0.29, troponin #3 is 0.26, troponin #4 is 0.26. Total cholesterol 234, triglycerides 147, LDL cholesterol 163, HDL cholesterol 42. TSH 5.14. IMPRESSION AND PLAN: In summary, Mr. Taylor is a 53-year-old gentleman presenting with approximately 6-month history of progressive symptoms of chest pain, exertional dyspnea with new EKG changes in the inferior leads III and aVF , mild elevation in troponins, atherosclerotic risks of elevated LDL cholesterol , family history of early strokes, hypertension, obstructive sleep apnea, overweight, out of shape, calcification over the coronaries noted on CT. Abnormal stress as above. The patient did have some gastritis noted in October for which he has been treated with proton pump inhibitors. I am concerned the patient could be having crescendo angina with elevated troponins and negative stress test relatively recently. I have recommended we proceed with heart catheterization. The indications, risks and benefits of the procedure and details were explained to the patient in front of his . They are amenable to proceeding. I am asking Interventional Cardiology to follow up. In the interim, we are starting a high dose statin empirically, await the results of the cath to make further recommendations. Thank you for allowing me to assist in this nice gentleman's care. 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 Undergoing transfer to [facility] for evaluation of highrisk intervention in a center w /rotablation capability vs. CABG. [id number]/[facility] #: [id number] MTDD
[2018-07-22 15:05] VITALS: BP 129/80
--- NOTE | 2018-07-22 15:17 | CATH ---
CC: Nolan Ro MD; Lilly Mcgarry MD CARDIAC CATHETERIZATION REPORT: DATE OF PROCEDURE: 07/22/18 INDICATION FOR THE PROCEDURE: The patient with acute coronary syndrome with progressive angina pectoris, abnormal cardiac enzymes, albeit not in a rise and fall pattern with abnormal EKG with T-wave inversions inferiorly raising question of inferior wall ischemia status post coronary artery disease. PROCEDURE: Coronary arteriography, left heart catheterization, left ventriculography. APPROACH UTILIZED: The right radial artery was assessed on the floor of the hospital for an approach and was found to be acceptable. Initially this was attempted because of difficulty negotiating catheter torquing because of a retroflexing ascending aorta from the brachiocephalic. The radial approach was aborted, the right femoral artery approach was then utilized. PRECARDIAC CATHETERIZATION LABORATORY RESULTS: Hemoglobin and hematocrit of 15.7 and 46 with a platelet count of 195,000. BUN and creatinine were 8 and 1.0. Sodium of 138, potassium 4, chloride 104, bicarb 25. His LDL was 163. CONSENT: The patient was interviewed and examined on the floor of the hospital where the risks and benefits were explained. He understood them and wished to proceed. EQUIPMENT UTILIZED: 1. Right radial artery sheath - 6-[place]an Glidesheath. 2. Diagnostic coronary catheter for radial approach, a 5-[place] TIG4 catheter for the right coronary artery and a 5-[place] FL3.5 curve catheter attempt at left from radial approach. 3. Exchange length wire for the radial approach, a 260 length Mathis curved guidewire. 4. Right femoral artery sheath was a 6.5 curved Merit sheath. 5. Diagnostic catheter for the left coronary artery was a FL4 curve 5-[place] catheter. 6. Diagnostic guide wire utilized was a 175 length J-tip wire. 7. The left heart catheterization catheter was a 5-[place] angled pigtail catheter. MEDICATIONS GIVEN DURING THE PROCEDURE: Included, a total of 2.5 mg of Versed and 25 mcg of fentanyl. The patient had already received aspirin therapy on the floor of the hospital. DESCRIPTION OF PROCEDURE: The patient was brought into the cardiovascular laboratory where a formal time-out was performed. He was prepped and draped in a sterile fashion, the right radial artery area was anesthetized and under ultrasound guidance it was cannulated and the sheath was placed. Attempts were made to do diagnostic coronary arteriography, but because of an abrupt angle producing a retroflexing of the catheters going from the brachiocephalic artery to the aorta, pushability was lost with the diagnostic catheters. Right coronary arteriography was performed but the left coronary artery was difficult to cannulate. A decision was then made to switch to the groin, a Vasc band was placed on the right radial artery. The right groin area was anesthetized with 1 % lidocaine. The right femoral artery was cannulated and sheath was placed. Coronary arteriography of the left coronary artery was performed utilizing the 5 -[place] FL4 curve catheter. Central aortic pressure was recorded using an angled pigtail catheter advanced to the ascending aorta. Catheter was then passed across the aortic valve until where left ventricular pressure was recorded. The left ventriculography was performed utilizing a power injection, a total of 28 cc of Omnipaque dye at a rate of 14 cc per second was utilized. The catheter was then pulled back across the aortic valve to recheck gradient. At the end of the case, the catheter and sheath were removed, and hemostasis was obtained with local pressure after the ACT was checked and found to be under 160. RESULTS: HEMODYNAMIC DATA: Left heart catheterization. Central aortic pressure was recorded at 125/77 with a mean of 98. Left ventricular pressure was recorded at 130 over left ventricular end diastolic pressure of 15. LEFT VENTRICULOGRAPHY: Performed in the DE OLIVEIRA projection revealed a run of ventricular ectopic activity making overall assessment difficult, but there appeared to be symmetrical contraction of the anterior and apical region with mild hypokinesis of the inferior wall. Overall ejection fraction estimated at 55%. There was no significant mitral regurgitation identified. CORONARY ARTERIOGRAPHY: A. Right coronary artery - a heavily calcified vessel with tapering at the mid segment with calcium with an area of narrowing as much as 60%. There were multiple turns within this proximal to mid portion leading to a critical calcified 95% lesion in the distal portion just after turning on to the inferior surface of the heart. The continuation of the right coronary artery supplied a bifurcating PDA as well as a thin first and second short posterior left ventricular branch and a longer third posterior left ventricular branch. The lateral branch of the bifurcating PDA had a proximal narrowing of 65%, this was a small caliber vessel, clearly not one of the interventional major. There was diffuse disease seen in the medial branch of this with area of stenosis as much as 65% to 70%. B. Left coronary artery: 1. Left main - widely patent with calcium in its distal portion. 2. Left anterior descending artery - there is calcium noted throughout the proximal and mid portion of the left anterior descending artery. The mid to distal portion also had some calcium, it became small in caliber and diffusely diseased. A mid diagonal branch had a diffuse disease with critical 85 % to 90% stenosis leading to a smaller area of more normal caliber. Of note, this was a short vessel supplying a somewhat small area of myocardium. The distal LAD had an area of stenosis noted to be as much as 70% to 75% in a somewhat smaller caliber area, perhaps 2 mm at most with calcium. 3. Circumflex artery - an ostial 65% to 70% stenosis was noted. The circumflex supplied 2 parallel obtuse marginal branches, which had diffuse disease throughout their proximal portions, the superior one more severe with 75 % to 80% narrowing noted. OVERALL ASSESSMENT: Significant multi-vessel disease with heavy calcification and marked tortuosity in the right coronary artery and critical lesion (culprit lesion) in the distal right coronary artery as it turned on to the inferior surface of the heart. Given the heavy calcification and the multiple turns throughout and the proximal to mid disease, I favored that this procedure be done at an institution capable of having support with rotational atherectomy in case it is needed to deliver stent to the area, as well as a evaluation for possible coronary artery bypass surgery as another option. I discussed the case with Dr. Reji MD (collective bargaining specialist at [facility]), who felt it was appropriate to transfer the patient to the hospitalist service of [facility] and they will be on consultation . I reviewed this with the hospitalist in our hospital taking care of them and as such, we will proceed with that. We will also start heparin without a bolus given the fact that the sheath was just pulled. [id number]/[facility] #: [id number] [facility]PITALRuss
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
== END 2018-07-22 14:00 | disposition short-term general hospital (02) | DRG 282 ==
LOC: ED 15:28 → MEDTELE 21:00
PROVIDERS: ADMIT Pediatrics; ATTEND Internal Medicine
PROC: B2151ZZ Fluoroscopy of Left Heart using Low Osmolar Contrast (ICD-10-PCS; 2018-07-22)
PROC: B2111ZZ Fluoroscopy of Multiple Coronary Arteries using Low Osmolar Contrast (ICD-10-PCS; 2018-07-22)
PROC: 4A023N7 Measurement of Cardiac Sampling and Pressure, Left Heart, Percutaneous Approach (ICD-10-PCS; principal; 2018-07-22 11:00)
DX: I21.4 Non-ST elevation (NSTEMI) myocardial infarction (principal); I10 Essential (primary) hypertension; G47.33 Obstructive sleep apnea (adult) (pediatric); K21.9 Gastro-esophageal reflux disease without esophagitis; M19.90 Unspecified osteoarthritis, unspecified site; M10.9 Gout, unspecified; I24.9 Acute ischemic heart disease, unspecified; J45.909 Unspecified asthma, uncomplicated; E66.3 Overweight; K29.70 Gastritis, unspecified, without bleeding; I25.119 Atherosclerotic heart disease of native coronary artery with unspecified angina pectoris; Z99.81 Dependence on supplemental oxygen; Z91.011 Allergy to milk products; Z91.09 Other allergy status, other than to drugs and biological substances; Z82.3 Family history of stroke; Z87.442 Personal history of urinary calculi; Z72.89 Other problems related to lifestyle; Z98.1 Arthrodesis status; Z79.01 Long term (current) use of anticoagulants; Z79.82 Long term (current) use of aspirin; Z68.27 Body mass index [BMI] 27.0-27.9, adult
CPT/HCPCS: 36415; 71046; 71275; 80048; 80053; 80061; 83735; 83880; 84443; 84484; 85025; 85347; 85379; 85610; 85730; 93005; 93458; 94660; 99156; 99157; 99285; A9270-GY; J0583; J1644; J2250; J3010; Q9967

== ENCOUNTER 2018-07-29 12:58 | Inpatient (IN) | payer OTHER ==
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
[2018-07-29] MEDS ORDERED: Morphine VIAL* 4 MG/ML VIAL (1 ml vial) IV ONE ×2 (13:19→18:59)
[2018-07-29 13:42] LABS: ABS Basophils 0 10^3/ul (0-0.2); ABS Eosinophils 0.3 10^3/ul (0-0.6); ABS Lymphocytes 1.7 10^3/ul (1.0-4.8); ABS Monocytes 1.3 10^3/ul (0-0.8); ABS Neutrophils 10.1 10^3/ul (1.5-7.7); ABS Nucleated RBC 0 10^3/ul; Eosinophil % 2.5 %; Hematocrit 35 % (42-52); Lymphocyte % 12.9 %; Mean Corpuscular HGB Conc 34 g/dl (31-36); Mean Corpuscular Hemoglobin 31 pg (27-31); Mean Corpuscular Volume 90 fL (80-94); Nucleated Red Blood Cells % 0; Platelet Count 314 10^3/ul (150-450); Red Blood Count 3.94 10^6/ul (4.00-5.40); Red Cell Distribution Width 13 % (10.5-15); White Blood Count 13.4 10^3/ul (3.5-10.8)
[2018-07-29 13:55] LABS: INR 0.98 (0.77-1.02)
[2018-07-29 14:03] LABS: EGFR Non-African American 87.8 (>60)
[2018-07-29] MEDS ORDERED: NS 0.9% 500 ML* 500 ML IV ONE (14:20)
[2018-07-29] MEDS ORDERED: Piperacillin/Tazobac ADVAN(*) 3.375 GM in NS 0.9% 100 ML* 100 ML IVPB ONE (14:20)
--- NOTE | 2018-07-29 18:58 | ECHO ---
Patient: MAYCOL CASEY [facility] Rec#: [id number] : 1965 Date: 07/29/2018 Age: 53y Height: 180 cm / 70.9 in Weight: 81 kg / 178.5 lbs Sex: M BSA: 2.01 Room#: ED 14 Admit Date#: 07/29/2018 Type: Outpatient Referring: Jamin To Reading: Lilly Mcgarry MD Online Editor: Alla Cardenas,KENNYCS,RDMS CC: Nolan Ro MD Transthoracic Echocardiogram Indication: CP BP: 144/105 HR: 94 Rhythm: NSR Findings History: S/P CABG, CAD, HTN, VIOLETA. Technical Comments: The study quality is good. Left Ventricle: The left ventricular chamber size is normal. The estimated ejection fraction is 50-55%. Post surgical hypokinesis of the interventricular septum is observed consistent with coronary artery bypass. There is no consistent Doppler evidence of clinically significant diastolic dysfunction. Left Atrium: The left atrial chamber size is normal. Right Ventricle: The right ventricular cavity size is normal. The right ventricular global systolic function is low normal. Right Atrium: The right atrium is slightly dilated. Aortic Valve: The aortic valve is trileaflet. The aortic valve leaflets are mildly thickened. Systolic excursion of the aortic valve is normal. There is no evidence of aortic regurgitation. There is no evidence of aortic stenosis. Mitral Valve: The mitral valve leaflets appear normal. There is mitral annular calcification. There is a trace of mitral regurgitation. There is no evidence of mitral stenosis. Tricuspid Valve: The tricuspid valve leaflets are normal. There is trace tricuspid regurgitation. No pulmonary hypertension is noted. Pulmonic Valve: The pulmonic valve appears normal. There is no evidence of pulmonic regurgitation. Pericardium: There is no significant pericardial effusion. Aorta: The aortic root appears normal. There is no dilatation of the aortic arch. Pulmonary Artery: The main pulmonary artery is not well visualized. Venous: The inferior vena cava is not visualized. Conclusions The left ventricular chamber size is normal. Post surgical hypokinesis of the interventricular septum is observed consistent with coronary artery bypass. The estimated ejection fraction is 50-55%. The right ventricular global systolic function is low normal. The aortic valve leaflets are mildly thickened with normal function. There is mitral annular calcification with trace mitral regurgitation. There is trace tricuspid regurgitation. There is no significant pericardial effusion. No prior study available to compare. Measurements Name Value Normal Range RVIDd (AP) 2D 2.6 cm (0.9 - 2.6) RVDdMajor (2D) 2.8 cm (2.2 - 4.4) RAd ISD 4CH 5.2 cm (3.4 - 4.9) RA (A4C)W 3.7 cm (2.9 - 4.6) IVSd (2D) 1.2 cm (0.6 - 1) LVPWd (2D) 1.3 cm (0.6 - 1) LVIDd (2D) 4.1 cm (3.6 - 5.4) LVIDs (2D) 3.7 cm - LV FS (2D) 10 % (25 - 45) Aortic Annulus 2 cm (1.4 - 2.6) Ao root diameter (2D) 3.2 cm (2.1 - 3.5) Ascending Ao 3.2 cm (2.1 - 3.4) Aortic arch 2.9 cm (1.8 - 3.4) LA dimension (AP) 2D 3.5 cm (2.3 - 3.8) LAd ISD 4CH 4.6 cm (2.9 - 5.3) LA ISD 4CH W 3.8 cm (2.5 - 4.5) Name Value Normal Range LA ESV BP (A/L) index 23 ml/m2 - Name Value Normal Range MV E-wave Vmax 0.5 m/sec - MV deceleration time 151 msec - MV A-wave Vmax 0.6 m/sec - MV E:A ratio 0.9 ratio - P. vein S-wave Vmax 0.6 m/sec - P. vein D-wave Vmax 0.5 m/sec - P. vein S:D Vmax ratio 1.3 ratio - P. vein A-wave duration 76 msec - LV septal e' Vmax 0.06 m/sec - LV lateral e' Vmax 0.11 m/sec - LV E:e' septal ratio 8 ratio - LV E:e' lateral ratio 5 ratio - Name Value Normal Range AV Vmax 1.3 m/sec - AV VTI 17 cm - AV peak gradient 7 mmHg - AV mean gradient 3 mmHg - LVOT Vmax 1.2 m/sec - LVOT VTI 16 cm - LVOT peak gradient 6 mmHg - LVOT mean gradient 2 mmHg - TARA Vmax 0.9 m/sec - Name Value Normal Range TR Vmax 2.5 m/sec - TR peak gradient 25 mmHg - RAP 8 mmHg - RVSP 33 mmHg - Name Value Normal Range PV Vmax 1.1 m/sec - PV peak gradient 5 mmHg -
--- NOTE | 2018-07-29 19:11 | ED ---
Progress - Progress Note Progress Note: Patient was signed out from Dr. To to Dr. Wright upon provider shift change pending consult and disposition. Re-Evaluation - Re-Evaluation First Eval Comment: Patient expresses that he does not want to be transferred to [facility]. Course/Dx - Course Course Of Treatment: Patient was signed out from Dr. To to Dr. Wright upon provider shift change pending Dr. Mcgarry consult and disposition. Discussed patient care with Dr. Mcgarry, facility maintenance technician, who noted she believes the patient' s pain is musculoskeletal and he does not require transfer to [facility]. She agreed to arrange admission to [facility] with Dr. Germain hospitalist. Patient will be admitted to [facility]. The patient is agreeable with this plan. - Diagnoses Provider Diagnoses: Chest pain - Provider Notifications Discussed Care Of Patient With: Lilly Mcgarry Time Discussed With Above Provider: 19:23 Instructed by Provider To: Other - Dr. Mcgarry, facility maintenance technician, noted that she believes the patient's pain is musculoskeletal and that he does not require a transfer to [facility]. Dr. Mcgarry agreed to arrange for admission of the patient to [facility] with Dr. Germain, hospitalist. Discharge - Sign-Out/Discharge Documenting (check all that apply): Patient Departure, Receiving Sign-Out Receiving patient FROM: Jamin To - Discharge Plan Condition: Stable Disposition: ADMITTED TO [facility] - Billing Disposition and Condition Condition: STABLE Disposition: Admitted to [facility] - Attestation Statements Document Initiated by Delaneyibe: Yes Documenting Scribe: Gladys Arnold Provider For Whom Joelle is Documenting (Include Credential): Russel Wright MD Scribe Attestation: Gldays Hilliard scribed for Russel Wright MD on 07/30/18 at 0629. Scribe Documentation Reviewed: Yes Provider Attestation: The documentation as recorded by the Gladys hernandez accurately reflects the service I personally performed and the decisions made by Kerri cruz MD Status of Scribe Document: Viewed
[2018-07-29] MEDS ORDERED: Ondansetron INJ* 2 MG/ML VIAL IV PRN (20:22)
[2018-07-29] MEDS ORDERED: Ketorolac INJ* 30 MG/ML 1 ML VIAL IM PRN (20:35)
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
[2018-07-29] MEDS ORDERED: Docusate CAP* 100 MG PO ONE (21:00)
[2018-07-29] MEDS ORDERED: oxyCODONE/Acetamin 5/325 MG* TAB PO PRN (21:47)
[2018-07-29] MEDS ORDERED: LORazepam INJ* 2 MG/ML 1 ML VIAL IV PUSH ONE (22:00)
[2018-07-29] MEDS: Atorvastatin* 40 MG TAB PO SCH (22:03)
[2018-07-29] MEDS: Metoprolol Tartrate TAB* 50 mg PO SCH (22:04)
[2018-07-29] MEDS: oxyCODONE/Acetamin 5/325 MG* TAB PO PRN (22:04)
[2018-07-29] MEDS: Omeprazole CAP* 20 MG PO SCH (22:04)
[2018-07-29] MEDS: Enoxaparin(*) 40 MG/0.4 ML SYR SUBCUT SCH (22:05)
[2018-07-29] MEDS: Lidocaine Patch REMOVE* 1 NOTE MISC SCH (22:06)
[2018-07-29 22:08] LABS: ABS Basophils 0.1 10^3/ul (0-0.2); ABS Eosinophils 0.5 10^3/ul (0-0.6); ABS Lymphocytes 2.5 10^3/ul (1.0-4.8); ABS Monocytes 0.9 10^3/ul (0-0.8); ABS Neutrophils 10.1 10^3/ul (1.5-7.7); ABS Nucleated RBC 0 10^3/ul; Eosinophil % 3.6 %; Hematocrit 35 % (42-52); Hemoglobin 11.8 g/dl (14.0-18.0); Lymphocyte % 17.4 %; Mean Corpuscular HGB Conc 34 g/dl (31-36); Mean Corpuscular Hemoglobin 30 pg (27-31); Mean Corpuscular Volume 90 fL (80-94); Mean Platelet Volume 9.8 fL (7.4-10.4); Nucleated Red Blood Cells % 0; Platelet Count 323 10^3/ul (150-450); Red Blood Count 3.91 10^6/ul (4.00-5.40); Red Cell Distribution Width 13 % (10.5-15); White Blood Count 14.1 10^3/ul (3.5-10.8)
[2018-07-29] MEDS: NS 0.9% 1000 ML* 1,000 ML IV SCH (22:12)
--- NOTE | 2018-07-29 22:46 | CONS ---
CC: Dr. Nolan Ro; Hospitalist Service * CARDIOLOGY CONSULTATION: DATE OF CONSULT: 07/29/18 REASON FOR CONSULT: ED called for the patient's post recent bypass surgery with elevated troponins and pain. CHIEF COMPLAINT: Shoulder pain and weakness. HISTORY OF PRESENT ILLNESS: Mr. Taylor is a 53-year-old patient who I first met last week, 07/21/18, when he presented with a crescendo angina story. At that time, he had mildly elevated troponins and cardiac catheterization done that same day revealed multivessel coronary disease and heavy calcification. It was not felt he would be a good candidate for interventional treatment here and he was referred to [facility] for evaluation for rotablation versus bypass. The patient underwent bypass surgery and I do not have the report with me. According to the patient, his , and his mother, he had a difficult time. He had significant pain. It sounds like his incisional pain was not the biggest problem, but shoulder pain was. He feels he was not absorbing his pain meds. Tramadol has never worked for him and he had significant muscular pain in the posterior shoulders bilaterally. The patient was sent home yesterday with his shoulder pain and some weakness. When he went home, he slept in a recliner chair because he felt too weak to walk up the stairs not because of orthopnea or PND, wore his CPAP as usual, was able to sleep 3- to 4-hour stretches without shortness of breath and it sounds like his pain was better at home than in the hospital. The next morning, the patient was seen by the visiting nurses at 10 in the morning. Two hours later, when they were still taking their intake, he needed to use the rest room and he had found the intake very taxing. When he stood up , according to his mother, it sounds like he looked white and looked very sick and was very dizzy. I do not have the records from the visiting nurses, but I am told that his blood pressure was quite low and the recommendation was to present to the emergency room. Original blood pressure in the emergency center at 12:49 today was 119/80 with a pulse of 105. The patient denied orthopnea or PND. He denies any recurrence of his anginal pain. He has mild incisional pain and the main pain is his posterior shoulder and neck pain. He said it is so bad he thinks he actually pulled his muscles and injured his muscles by not being treated for pain. The patient ate a good breakfast without nausea. He denies constipation or diarrhea. He has been taking the Percocet prescribed since he has been home as directed around the clock. PAST MEDICAL HISTORY: The patient has a past medical history of: 1. Coronary artery disease (LAD 70% to 75% occlusion distally, mid diagonal branch had 85% to 90% occlusion, circumflex ostial 65% to 70% occlusion with an OM branch of 75% to 80% occlusion. The right coronary artery was critically tight and felt to be the culprit lesion and heavily calcified with multiple lesions). 2. Hypertension. 3. Dyslipidemia. 4. Obstructive sleep apnea. 5. Expressive aphasia, 03/17/18, (CT negative). 6. Testicular torsion. 7. Calcium oxalate kidney stones. 8. EB virus, summer 2017. 9. Multiple orthopedic issues including cervical spine surgery. PAST SURGICAL HISTORY: 1. His multivessel bypass surgery in [facility] last week. 2. Double testicular torsion surgery. 3. Neck fusion surgery. 4. Right shoulder arthroplasty. MEDICATIONS: Discharge medications from [facility] include: 1. Percocet 1 tab p.o. q.6 hours. 2. Aspirin 81 mg a day. 3. Atorvastatin 40 mg a day. 4. Plavix 75 mg a day. 5. Metoprolol 50 mg b.i.d. 6. Oxycodone/acetaminophen 5/325 one to two tabs p.o. q.4 hours p.r.n. ALLERGIES: Include lactose intolerance, but no medication allergies. FAMILY HISTORY: Positive for vascular disease. His father had a stroke in his 60s (father was adopted). Sister has a history of breast cancer. SOCIAL HISTORY: The patient was working at [employer]. Does not exercise regularly. Never smoked. Occasional alcohol and no recreational drug use. REVIEW OF SYSTEMS: See history of present illness. Negative for fevers, chills , sweats, orthopnea, PND. No acute problems with bowel or bladder habits. No recurrence of his anginal chest pain. He is having some gas and his asked if he could have Gas-X and his chief complaint is bilateral shoulder and neck discomfort and weakness and dizziness standing and walking. He said he stumbled walking at the hospital yesterday. PHYSICAL EXAM: He is 6 feet tall, weighs 200 pounds. Blood pressure at triage was 119/80, pulse was 105, oxygen saturation 99% with 2 L nasal cannula and 91% on room air. At the time I saw him, his blood pressure was 156/70. He had sinus tachycardia 120 beats a minute. General Appearance: Older middle-aged gentleman lying about 20 degrees, appears uncomfortable and anxious. Psychologically, cooperative and very frustrated with his situation. Neurologically, awake, alert, and oriented to person, place, and time. Grossly normal sensory and motor function in the upper and lower extremities with bed exam. Skin: Minimally pale, no cyanosis. Midline sternotomy scar and drain site is healing well without evidence of infection or abnormality. Neck: Without increased JVP, warm packs on. No thyromegaly. Muscles are firm and tense. Mucous membranes moist. Breath sounds, slightly diminished in the bases but no wheezes, rales, or rhonchi, and excellent intake in the upper lung odell. Coronary: S1, S2 regular without murmurs and no rubs. Abdomen: Active bowel sounds, soft, nontender. Lower extremities are free of edema with strong posterior tibial pulses that are symmetrical. DIAGNOSTIC STUDIES/LAB DATA: A 12-lead ECG shows normal sinus rhythm 96 beats a minute, QRS axis of 0, normal AV and IV conduction times, somewhat flattened T waves in the inferolateral leads and this EKG is compared with his EKG pre- bypass. The T waves in leads III and aVF are no longer inverted. Chest x-ray shows mild blunting of the left costophrenic angle consistent with a small pleural effusion. Bowel gas pattern does show some increase in intestinal gas. Echocardiogram done tonight shows paradoxical septal wall motion (expected post bypass) and otherwise normal wall motion with an ejection fraction of 50% to 55% , normal valve function and no evidence of pericardial effusion. White count 13.4, hemoglobin 12.0, hematocrit 35, platelets 314. INR 0.98, PTT 28. Sodium 138, potassium 3.6, chloride 103, bicarb 25, BUN 18, creatinine 0.91 , glucose 119, lactic acid 2.2, magnesium 2.2. Bili 0.4, AST 26, ALT 27. CPK 82. CPK-MB 1.4. Troponin #1, 1.99; #2, 1.47. C-reactive protein 71. Brain natriuretic peptide 239. TSH 9.95. IMPRESSION: In summary, Mr. Taylor is a 53-year-old gentleman with multivessel atherosclerotic heart disease, 5 to 6 days post multivessel bypass surgery presenting with shoulder pain, weakness, and orthostatic low blood pressure by history, not confirmed with vitals from the visiting nurses. The original plan from the emergency room was to admit him back to [facility] as he has just been discharged. The patient declined this option. I do not feel that he has any urgent cardiac or postsurgical issues that would necessitate him returning to [facility]. The patient and his family, , and mother do not feel the patient was ready for discharge and do not feel that he can be managed at home with his current pain level and weakness. I recommended to the emergency department that he be admitted for observation. 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 For musculoskelatal pain I discussed the possibility of Flexeril as he mentioned that muscles feeling like they were balled up and he says this had worked on him in the past when he had his neck fusion and he is amenable to trying this. We will continue the Percocet at the dose he was discharged on. From a cardiac standpoint with his tachycardia and lower blood pressure on admission, the only medication that would have lowered his blood pressure was the metoprolol. We could try giving him the same dose of 100 mg a day, but switching it to 25 mg q.6 hours with holding parameters. With his lactic acid being up and the patient and his said he really was not taking p.o. over the weekend, I think we should hydrate him, which may help with any orthostatic symptoms as well. I think we should replete his potassium. Troponin elevation is most likely related to recent bypass surgery with a differential of post pericardiectomy elevations and I cannot rule out ischemia, but the patient does deny recurrence of his anginal pain and his echo was reassuring, but we will trend these and we can make further recommendations pending his clinical course and EKG. If the patient appeared to have recurrent angina, then we could consider transfer to [facility] if indicated. For the elevated TSH, we could get a free T4 and total T3, but at this point, I would not recommend treating this as it might lead to additional tachycardia and any abnormality appears mild. For the increased bowel gas pattern, this could contribute to weakness if gas is contributing to pain as it did in the ED and if it is increasing vagal tone. Measures of avoiding constipation should be done, ambulating would be the best but will need to get his pain controlled, I think, before he will ambulate again. We may need a Physical Therapy consult for this. Additional recommendations can be made pending his clinical course and response to the above measures. [id number]/CPS #: [id number] [email or web address]
[2018-07-30] MEDS: Cyclobenzaprine TAB* 10 MG PO PRN (04:57)
[2018-07-30] MEDS: oxyCODONE/Acetamin 5/325 MG* TAB PO PRN ×4 (06:09→18:31)
[2018-07-30] MEDS ORDERED: Metoprolol Tartrate TAB* 25 MG PO SCH (09:00)
[2018-07-30] MEDS: Vitamin THERAPEUTIC TAB PO SCH (10:01)
[2018-07-30] MEDS: Aspirin 81 mg CHEW TAB* 81 MG TAB.CHEW PO SCH (10:01)
[2018-07-30] MEDS: Omeprazole CAP* 20 MG PO SCH (10:01)
[2018-07-30] MEDS: Lidocaine PATCH 5%* 1 PATCH TRANSDERM SCH (10:01)
[2018-07-30] MEDS: Metoprolol Tartrate TAB* 50 mg PO SCH (10:11)
[2018-07-30] MEDS: Colchicine* 0.6 MG TAB PO SCH (11:26)
[2018-07-30] MEDS: Morphine VIAL* 4 MG/ML VIAL (1 ml vial) IV PRN ×3 (11:26→21:51)
[2018-07-30] MEDS ORDERED: Potassium Chloride LIQUID* 20 MEQ PACKET PO ONE (14:00)
[2018-07-30] MEDS: Ketorolac INJ* 30 MG/ML 1 ML VIAL IV PRN ×2 (15:42→21:51)
--- NOTE | 2018-07-30 17:07 | PN ---
Subjective Date of Service: 07/30/18 Interval History: HOSPITALIST PROGRESS NOTE Patient seen and examined at bedside. Care reviewed and d/w Shadia Kelly RN. He states he's chest pain is less intense today, he's able to take deeper breaths comfortably. His major complaint is left sided neck pain radiating to his shoulder. Family History: Unchanged from Admission Social History: Unchanged from Admission Past Medical History: Unchanged from Admission Objective Active Medications: Aspirin (Aspirin 81 Mg Chew Tab*) 81 mg PO DAILY [facility] Last Admin: 07/30/18 10:01 Dose: 81 mg Atorvastatin Calcium (Lipitor*) 40 mg PO 2100 [facility] Last Admin: 07/29/18 22:03 Dose: 40 mg Colchicine (Colcrys*) 0.6 mg PO DAILY [facility] Last Admin: 07/30/18 11:26 Dose: 0.6 mg Cyclobenzaprine HCl (Flexeril Tab*) 10 mg PO TID PRN PRN Reason: PAIN Last Admin: 07/30/18 04:57 Dose: 10 mg Enoxaparin Sodium (Lovenox(*)) 40 mg SUBCUT Q24H [facility] Last Admin: 07/29/18 22:05 Dose: 40 mg Sodium Chloride (Ns 0.9% 1000 Ml*) 1,000 mls @ 100 mls/hr IV PER RATE [facility] Last Admin: 07/29/18 22:12 Dose: 100 mls/hr Ibuprofen (Motrin Tab*) 400 mg PO Q6H PRN PRN Reason: PAIN Ketorolac Tromethamine (Toradol Inj*) 30 mg IV Q6H PRN PRN Reason: PAIN Stop: 08/03/18 20:35 Last Admin: 07/30/18 15:42 Dose: 30 mg Lidocaine (Lidoderm 5% Patch*) 2 patch TRANSDERM DAILY [facility] Last Admin: 07/30/18 10:01 Dose: 2 patch Metoprolol Succinate (Toprol Xl Tab*) 25 mg PO BID [facility] Morphine Sulfate (Morphine Vial*) 1 mg IV Q1H PRN PRN Reason: SEVERE PAIN Last Admin: 07/30/18 15:42 Dose: 1 mg Multivitamins (Theragran Tab*) 1 tab PO DAILY [facility] Last Admin: 07/30/18 10:01 Dose: 1 tab Omeprazole (Prilosec Cap*) 40 mg PO DAILY [facility] Last Admin: 07/30/18 10:01 Dose: 40 mg Ondansetron HCl (Zofran Inj*) 4 mg IV Q6H PRN PRN Reason: NAUSEA/VOMITING Oxycodone/Acetaminophen (Percocet 5/325 Tab*) 2 tab PO Q4H PRN PRN Reason: SEVERE PAIN Last Admin: 07/30/18 14:05 Dose: 2 tab Oxycodone/Acetaminophen (Percocet 5/325 Tab*) 1 tab PO Q4H PRN PRN Reason: PAIN - MODERATE Last Admin: 07/30/18 02:06 Dose: 1 tab Pharmacy Profile Note (Lidocaine Patch Remove*) 1 note N/A 2100 [facility] Last Admin: 07/29/18 22:06 Dose: Not Given Vital Signs - 8 hr 07/30/18 07/30/18 07/30/18 10:00 10:18 11:07 Temperature 98.5 F Pulse Rate 102 Respiratory 19 19 20 Rate Blood Pressure 133/81 (mmHg) O2 Sat by Pulse 94 Oximetry 07/30/18 07/30/18 07/30/18 11:18 11:21 11:26 Temperature 98.4 F 98.4 F Pulse Rate 97 103 Respiratory 20 19 17 Rate Blood Pressure 127/78 143/82 (mmHg) O2 Sat by Pulse 96 98 Oximetry 07/30/18 07/30/18 07/30/18 12:10 13:05 14:05 Temperature 98.5 F Pulse Rate 107 Respiratory 19 20 19 Rate Blood Pressure 134/86 (mmHg) O2 Sat by Pulse 96 Oximetry 07/30/18 07/30/18 15:40 15:42 Temperature 97.9 F Pulse Rate 94 Respiratory 20 19 Rate Blood Pressure 137/82 (mmHg) O2 Sat by Pulse 95 Oximetry Oxygen Devices in Use Now: None Appearance: Middle aged gentleman lying in bed in NAD. Eyes: No Scleral Icterus Ears/Nose/Mouth/Throat: Mucous Membranes Moist Neck: Trachea Midline Respiratory: Symmetrical Chest Expansion and Respiratory Effort, Clear to Auscultation Cardiovascular: RRR - Normal S1 and S2. 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 - Patient Problems (1) Chest pain Comment: - Multifactorial - part of it is still post op pain, and this has been a difficult issue during his hospital stay at [facility] and after discharge. 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 - As per Cardiology, troponin elevation is compatible with post CABG state, but if develops anginal pain and significant troponin elevation, would recommend transfer to [facility]. - Echo showed EF 50-55%, with inferior wall hypokinesis compatible with CABG. - Continue Aspirin, Atorvastatin, Metoprolol. (2) Neck pain Comment: - Likely musculoskeletal secondary to surgery positioning and muscle spasms, but he does have a history of neck fusion. - Cannot have MRI for 6 weeks after CABG - will check CT cervical spine. - Neurosurgery consult requested - no neuro deficits at this time, but would like to have opinion due to his h/o prior surgery. - Continue pain management and muscle relaxer. (3) Lactic acidosis Comment: - Mild, secondary to dehydration - resolved. - No signs of infection. (4) Leukocytosis Comment: - Stress reaction to surgery - no signs of infection. (5) TSH elevation Comment: - Check free T4 and T3. (6) HTN (hypertension) Comment: - Controlled. - Continue Metoprolol. (7) VIOLETA (obstructive sleep apnea) Comment: - Continue CPAP. (8) DVT prophylaxis Comment: - Lovenox. (9) Full code status Status and Disposition: Change to inpatient for further management of chest and neck pain, with risk of decompensation in the setting of recent CABG.
[2018-07-30] MEDS: Metoprolol Succinate XL TAB* 25 MG PO SCH (21:51)
[2018-07-30] MEDS: Atorvastatin* 40 MG TAB PO SCH (21:51)
[2018-07-30] MEDS: Enoxaparin(*) 40 MG/0.4 ML SYR SUBCUT SCH (21:51)
[2018-07-30] MEDS: Lidocaine Patch REMOVE* 1 NOTE MISC SCH (21:59)
--- NOTE | 2018-07-30 23:55 | CONS ---
CONSULTATION NOTE: DATE OF CONSULT: 07/30/18 HISTORY OF PRESENT ILLNESS: The patient is a very pleasant 53-year-old gentleman, who was admitted to the hospital with complaints of chest pain. The patient is status post multilevel CABG at [facility] on 07/22/18. He has a history of hypertension, coronary artery disease, hyperlipidemia, obstructive sleep apnea, and cervical spine degenerative disk disease. He is status post fusion by Dr. Wilcox in [facility] in 2014 for C5-6 and C6-7 ACDF. The patient reported he did very well after that operation. He reports that after his recent surgical intervention in [facility], his pain control was rather limited and he started having significant muscle spasms because he was in a lot of pain. Since then, he has been having pain in the left side of his neck that radiates to the left shoulder. The patient denies any weakness, numbness, or tingling of his extremities. He ambulates without significant difficulty. He denies any urinary or GI incontinence. PAST MEDICAL HISTORY: Coronary artery disease, hyperlipidemia, hypertension, obstructive sleep apnea, chronic neck pain. PAST SURGICAL HISTORY: Left shoulder surgery, CABG, and ACDF of C5 to C7. HOME MEDICATIONS: 1. Aspirin 81. 2. Lipitor. 3. Plavix. 4. Metoprolol. 5. Oxycodone. 6. Acetaminophen. ALLERGIES: and ENVIRONMENTAL allergies. FAMILY HISTORY: Stroke. 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 He is and lives with his and they have 2 sons. Tobacco, negative. Alcohol, occasionally. Recreational drug use, negative. PHYSICAL EXAM: The patient is not in acute distress. He is awake, alert, and oriented x3. His pupils are equal and reactive. Cranial nerves II through XII are grossly intact. Motor 5/5 in all extremities. Sensory is grossly intact to light touch. Deep tendon reflexes are +1 bilaterally. No clonus. No Babinski. Lomeli's negative. Straight leg raise negative in the seating position. No pain on passive motion of his shoulders. DIAGNOSTIC STUDIES: The patient has a CT scan of his cervical spine that revealed postoperative changes in C5-6 and C6-7 ACDF and moderate neural foraminal stenosis on the left C5-6; similar in appearance from the study from 2015. 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 He has a history of anterior cervical diskectomy and fusion at C5-6 and C6-7. PLAN: The patient at this point reports that he has significant pain, but unfortunately get the MRI. We will get the MRI of his cervical spine because of his recent surgery. We discussed other treatment options including myelogram, but the patient is on aspirin and Plavix, and that may make things even more difficult. We discussed other possibilities of pain as well as the possibility of infection or other pathology. As of now, more likely the cause of pain is muscular, we recommend MRI of his cervical spine when able. Thank you for allowing us to participate in the care of this patient. Please do not to hesitate to contact our office in case you have any further questions or concerns regarding the care of this patient. [id number]/CPS #: [id number] [email or web address]
[2018-07-31] MEDS: Cyclobenzaprine TAB* 10 MG PO PRN ×3 (01:23→22:22)
[2018-07-31] MEDS: oxyCODONE/Acetamin 5/325 MG* TAB PO PRN ×4 (01:23→21:38)
[2018-07-31] MEDS: NS 0.9% 1000 ML* 1,000 ML IV SCH (04:07)
[2018-07-31] MEDS: Morphine VIAL* 4 MG/ML VIAL (1 ml vial) IV PRN ×2 (04:29→11:26)
[2018-07-31] MEDS: Ketorolac INJ* 30 MG/ML 1 ML VIAL IV PRN ×2 (04:30→11:26)
[2018-07-31 04:57] LABS: Urine Appearance Clear; Urine Blood Negative (Negative); Urine Color Yellow; Urine Ketones Negative (Negative); Urine Protein Negative (Negative); Urine Specific Gravity 1.023 (1.010-1.030); Urine Urobilinogen Negative (Negative)
[2018-07-31 06:50] LABS: ABS Basophils 0.1 10^3/ul (0-0.2); ABS Eosinophils 0.5 10^3/ul (0-0.6); ABS Lymphocytes 2.1 10^3/ul (1.0-4.8); ABS Monocytes 0.8 10^3/ul (0-0.8); ABS Neutrophils 6.3 10^3/ul (1.5-7.7); ABS Nucleated RBC 0 10^3/ul; Eosinophil % 5.6 %; Hematocrit 30 % (42-52); Hemoglobin 10.1 g/dl (14.0-18.0); Lymphocyte % 21.8 %; Mean Corpuscular HGB Conc 34 g/dl (31-36); Mean Corpuscular Hemoglobin 31 pg (27-31); Mean Corpuscular Volume 90 fL (80-94); Mean Platelet Volume 9.5 fL (7.4-10.4); Nucleated Red Blood Cells % 0.1; Platelet Count 299 10^3/ul (150-450); Red Blood Count 3.31 10^6/ul (4.00-5.40); Red Cell Distribution Width 13 % (10.5-15); White Blood Count 9.8 10^3/ul (3.5-10.8)
[2018-07-31 07:12] LABS: EGFR Non-African American 104.9 (>60)
[2018-07-31] MEDS: Metoprolol Succinate XL TAB* 25 MG PO SCH ×2 (08:49→21:37)
[2018-07-31] MEDS: Colchicine* 0.6 MG TAB PO SCH (08:49)
[2018-07-31] MEDS: Vitamin THERAPEUTIC TAB PO SCH (08:49)
[2018-07-31] MEDS: Omeprazole CAP* 20 MG PO SCH (08:49)
[2018-07-31] MEDS: Aspirin 81 mg CHEW TAB* 81 MG TAB.CHEW PO SCH (08:50)
[2018-07-31] MEDS: Lidocaine PATCH 5%* 1 PATCH TRANSDERM SCH (08:50)
[2018-07-31] MEDS: Bisacodyl EC TAB* 5 MG PO SCH (10:15)
[2018-07-31] MEDS: Polyethylene Glycol 3350* 17 GM PACKET PO SCH (10:15)
--- NOTE | 2018-07-31 15:22 | PN ---
Subjective Date of Service: 07/31/18 Interval History: HOSPITALIST PROGRESS NOTE Patient seen and examined at bedside. Care reviewed and d/w Shadia Kelly RN. He states his incisional pain and pleuritic chest pain are much improved. His issue now is left trapezius pain that was severe after spending some time sitting up. Denies dyspnea, palpitations, N/V/D, tolerating diet well. Family History: Unchanged from Admission Social History: Unchanged from Admission Past Medical History: Unchanged from Admission Objective Active Medications: Aspirin (Aspirin 81 Mg Chew Tab*) 81 mg PO DAILY [facility] Last Admin: 07/31/18 08:50 Dose: 81 mg Atorvastatin Calcium (Lipitor*) 40 mg PO 2100 [facility] Last Admin: 07/30/18 21:51 Dose: 40 mg Bisacodyl (Dulcolax Ec Tab*) 5 mg PO DAILY [facility] Last Admin: 07/31/18 10:15 Dose: 5 mg Colchicine (Colcrys*) 0.6 mg PO DAILY [facility] Last Admin: 07/31/18 08:49 Dose: 0.6 mg Cyclobenzaprine HCl (Flexeril Tab*) 10 mg PO TID PRN PRN Reason: PAIN Last Admin: 07/31/18 13:05 Dose: 10 mg Enoxaparin Sodium (Lovenox(*)) 40 mg SUBCUT Q24H [facility] Last Admin: 07/30/18 21:51 Dose: 40 mg Ibuprofen (Motrin Tab*) 400 mg PO Q6H PRN PRN Reason: PAIN Ketorolac Tromethamine (Toradol Inj*) 30 mg IV Q6H PRN PRN Reason: PAIN Stop: 08/03/18 20:35 Last Admin: 07/31/18 11:26 Dose: 30 mg Lidocaine (Lidoderm 5% Patch*) 2 patch TRANSDERM DAILY [facility] Last Admin: 07/31/18 08:50 Dose: 2 patch Metoprolol Succinate (Toprol Xl Tab*) 25 mg PO BID [facility] Last Admin: 07/31/18 08:49 Dose: 25 mg Morphine Sulfate (Morphine Vial*) 1 mg IV Q1H PRN PRN Reason: SEVERE PAIN Last Admin: 07/31/18 11:26 Dose: 1 mg Morphine Sulfate (Ms Contin(*)) 15 mg PO Q12H [facility] Multivitamins (Theragran Tab*) 1 tab PO DAILY [facility] Last Admin: 07/31/18 08:49 Dose: 1 tab Omeprazole (Prilosec Cap*) 40 mg PO DAILY [facility] Last Admin: 07/31/18 08:49 Dose: 40 mg Ondansetron HCl (Zofran Inj*) 4 mg IV Q6H PRN PRN Reason: NAUSEA/VOMITING Oxycodone/Acetaminophen (Percocet 5/325 Tab*) 2 tab PO Q4H PRN PRN Reason: SEVERE PAIN Last Admin: 07/31/18 13:05 Dose: 2 tab Oxycodone/Acetaminophen (Percocet 5/325 Tab*) 1 tab PO Q4H PRN PRN Reason: PAIN - MODERATE Last Admin: 07/30/18 02:06 Dose: 1 tab Pharmacy Profile Note (Lidocaine Patch Remove*) 1 note N/A 2100 [facility] Last Admin: 07/30/18 21:59 Dose: 1 note Polyethylene Glycol/Electrolytes (Miralax*) 17 gm PO DAILY [facility] Last Admin: 07/31/18 10:15 Dose: 17 gm Vital Signs - 8 hr 07/31/18 07/31/18 07/31/18 07:29 08:00 08:48 Temperature 97.8 F Pulse Rate 95 Respiratory 16 19 19 Rate Blood Pressure 137/84 (mmHg) O2 Sat by Pulse 96 Oximetry 07/31/18 07/31/18 07/31/18 11:26 12:51 12:52 Temperature Pulse Rate Respiratory 17 19 21 Rate Blood Pressure (mmHg) O2 Sat by Pulse Oximetry 07/31/18 13:05 Temperature Pulse Rate Respiratory 19 Rate Blood Pressure (mmHg) O2 Sat by Pulse Oximetry Oxygen Devices in Use Now: None Appearance: Pleasant middle aged gentleman lying in bed in [facility], but appears uncomfortable. Eyes: No Scleral Icterus Ears/Nose/Mouth/Throat: Mucous Membranes Moist Neck: Trachea Midline, - - Pain on palpation of mid left trapezius Respiratory: Symmetrical Chest Expansion and Respiratory Effort, Clear to Auscultation Cardiovascular: RRR - Normal S1 and S2 Neurological: Alert and Oriented x 3, NL Muscle Strength and Tone Result Diagrams: 07/31/18 06:29 07/31/18 06:29 Assess/Plan/Problems-Billing Assessment: Mr Taylor is a 53 yo M with PMH of CAD s/p multivessel CABG at [facility] 07/22/18, HTN, HLD, VIOLETA, cervical spine DJD s/p fusion 2012, who presented to ED with c/o chest pain 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 - Patient Problems (1) Chest pain Comment: - Multifactorial - combination of post op/incisional pain, Tamie's syndrome, and musculoskeletal pain. - Cardiology input appreciated - continue Colchicine and NSAIDs PRN - he states the pleuritic chest pain is improved. - As per Cardiology, troponin elevation is compatible with post CABG state, but if develops anginal pain and significant troponin elevation, would recommend transfer to [facility]. - Echo showed EF 50-55%, with inferior wall hypokinesis compatible with CABG. - Continue Aspirin, Atorvastatin, Metoprolol. (2) Neck pain Comment: - Likely musculoskeletal secondary to surgery positioning and muscle spasms. - Cannot have MRI for 6 weeks after CABG - CT cervical spine didn't show acute findings. - Neurosurgery consult appreciated - no neuro deficits at this time, plan for MRI in the future. - Continue pain management and muscle relaxer. (3) Lactic acidosis Comment: - Mild, secondary to dehydration - resolved. - No signs of infection. (4) Leukocytosis Comment: - Stress reaction to surgery - no signs of infection. (5) TSH elevation Comment: - With normal free T4 and T3 62, compatible with mild hypothyroidism - as per Cardiology recommendation would not treat now as it can induce further tachycardia and it is mild. - Repeat TFTs in 4 weeks. (6) HTN (hypertension) Comment: - Controlled. - Continue Metoprolol. (7) VIOLETA (obstructive sleep apnea) Comment: - Continue CPAP. (8) DVT prophylaxis Comment: - Lovenox. (9) Full code status Status and Disposition: Change to inpatient for further management of chest and neck pain, with risk of decompensation in the setting of recent CABG.
[2018-07-31] MEDS: Morphine TAB Extended Release (*) 15 MG TAB.ER PO SCH (15:56)
[2018-07-31] MEDS: Atorvastatin* 40 MG TAB PO SCH (21:39)
[2018-07-31] MEDS: Enoxaparin(*) 40 MG/0.4 ML SYR SUBCUT SCH (21:39)
[2018-07-31] MEDS: Lidocaine Patch REMOVE* 1 NOTE MISC SCH (21:50)
[2018-08-01] MEDS: Morphine TAB Extended Release (*) 15 MG TAB.ER PO SCH ×2 (03:20→15:32)
[2018-08-01] MEDS: Omeprazole CAP* 20 MG PO SCH (09:39)
[2018-08-01] MEDS: oxyCODONE/Acetamin 5/325 MG* TAB PO PRN ×2 (09:39→17:14)
[2018-08-01] MEDS: Ibuprofen TAB* 400 MG PO PRN ×2 (09:40→17:12)
[2018-08-01] MEDS: Cyclobenzaprine TAB* 10 MG PO PRN ×2 (09:40→17:13)
[2018-08-01] MEDS: Metoprolol Succinate XL TAB* 25 MG PO SCH ×2 (09:40→21:03)
[2018-08-01] MEDS: Vitamin THERAPEUTIC TAB PO SCH (09:40)
[2018-08-01] MEDS: Aspirin 81 mg CHEW TAB* 81 MG TAB.CHEW PO SCH (09:41)
[2018-08-01] MEDS: Polyethylene Glycol 3350* 17 GM PACKET PO SCH (09:43)
[2018-08-01] MEDS: Lidocaine PATCH 5%* 1 PATCH TRANSDERM SCH (09:44)
[2018-08-01] MEDS: Bisacodyl EC TAB* 5 MG PO SCH (09:46)
[2018-08-01] MEDS: Colchicine* 0.6 MG TAB PO SCH (09:47)
[2018-08-01] MEDS ORDERED: Magnesium Hydroxide LIQ* 30 ML UDC PO PRN (11:51)
--- NOTE | 2018-08-01 16:09 | PN ---
Subjective Date of Service: 08/01/18 Interval History: HOSPITALIST PROGRESS NOTE Patient seen and examined at bedside. Care reviewed and d/w Man Patino RN. He had a difficult night. Had an accident with he HOB where it was propped on his bedside and then suddenly fell, causing severe pain to his right side. His retrosternal and incisional chest pain are much improved. Left trapezius pain is still present, but not as intense. Family History: Unchanged from Admission Social History: Unchanged from Admission Past Medical History: Unchanged from Admission Objective Active Medications: Aspirin (Aspirin 81 Mg Chew Tab*) 81 mg PO DAILY [facility] Last Admin: 08/01/18 09:41 Dose: 81 mg Atorvastatin Calcium (Lipitor*) 40 mg PO 2100 [facility] Last Admin: 07/31/18 21:39 Dose: 40 mg Bisacodyl (Dulcolax Ec Tab*) 5 mg PO DAILY [facility] Last Admin: 08/01/18 09:46 Dose: 5 mg Colchicine (Colcrys*) 0.6 mg PO DAILY [facility] Last Admin: 08/01/18 09:47 Dose: 0.6 mg Cyclobenzaprine HCl (Flexeril Tab*) 10 mg PO TID PRN PRN Reason: PAIN Last Admin: 08/01/18 09:40 Dose: 10 mg Enoxaparin Sodium (Lovenox(*)) 40 mg SUBCUT Q24H [facility] Last Admin: 07/31/18 21:39 Dose: 40 mg Ibuprofen (Motrin Tab*) 400 mg PO Q6H PRN PRN Reason: PAIN Last Admin: 08/01/18 09:40 Dose: 400 mg Ketorolac Tromethamine (Toradol Inj*) 30 mg IV Q6H PRN PRN Reason: PAIN Stop: 08/03/18 20:35 Last Admin: 07/31/18 11:26 Dose: 30 mg Lidocaine (Lidoderm 5% Patch*) 2 patch TRANSDERM DAILY [facility] Last Admin: 08/01/18 09:44 Dose: Not Given Magnesium Hydroxide (Milk Of Magnesia Liq*) 30 ml PO Q6H PRN PRN Reason: CONSTIPATION Metoprolol Succinate (Toprol Xl Tab*) 25 mg PO BID [facility] Last Admin: 08/01/18 09:40 Dose: 25 mg Morphine Sulfate (Morphine Vial*) 1 mg IV Q1H PRN PRN Reason: SEVERE PAIN Last Admin: 07/31/18 11:26 Dose: 1 mg Morphine Sulfate (Ms Contin(*)) 15 mg PO Q12H [facility] Last Admin: 08/01/18 15:32 Dose: 15 mg Multivitamins (Theragran Tab*) 1 tab PO DAILY [facility] Last Admin: 08/01/18 09:40 Dose: 1 tab Omeprazole (Prilosec Cap*) 40 mg PO DAILY [facility] Last Admin: 08/01/18 09:39 Dose: 40 mg Ondansetron HCl (Zofran Inj*) 4 mg IV Q6H PRN PRN Reason: NAUSEA/VOMITING Oxycodone/Acetaminophen (Percocet 5/325 Tab*) 2 tab PO Q4H PRN PRN Reason: SEVERE PAIN Last Admin: 08/01/18 09:39 Dose: 2 tab Oxycodone/Acetaminophen (Percocet 5/325 Tab*) 1 tab PO Q4H PRN PRN Reason: PAIN - MODERATE Last Admin: 07/30/18 02:06 Dose: 1 tab Pharmacy Profile Note (Lidocaine Patch Remove*) 1 note N/A 2100 [facility] Last Admin: 07/31/18 21:50 Dose: 1 note Polyethylene Glycol/Electrolytes (Miralax*) 17 gm PO DAILY [facility] Last Admin: 08/01/18 09:43 Dose: 17 gm Vital Signs - 8 hr 08/01/18 08/01/18 08/01/18 09:39 09:40 11:07 Temperature 96.7 F Pulse Rate 108 Respiratory 18 18 16 Rate Blood Pressure 133/95 (mmHg) O2 Sat by Pulse 100 Oximetry 08/01/18 08/01/18 08/01/18 11:38 11:50 15:32 Temperature Pulse Rate Respiratory 18 18 16 Rate Blood Pressure (mmHg) O2 Sat by Pulse Oximetry 08/01/18 15:48 Temperature 97.4 F Pulse Rate 99 Respiratory 15 Rate Blood Pressure 116/79 (mmHg) O2 Sat by Pulse 96 Oximetry Oxygen Devices in Use Now: None Appearance: Pleasant gentleman sitting up in a recliner in NAD. 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 - Patient Problems (1) Chest pain Comment: - Multifactorial - combination of post op/incisional pain, Tamie's syndrome, and musculoskeletal pain. - Cardiology input appreciated - continue Colchicine and NSAIDs PRN - he states the pleuritic chest pain is improved. - As per Cardiology, troponin elevation is compatible with post CABG state, but if develops anginal pain and significant troponin elevation, would recommend transfer to [facility]. - Echo showed EF 50-55%, with inferior wall hypokinesis compatible with CABG. - Continue Aspirin, Atorvastatin, Metoprolol. (2) Neck pain Comment: - Likely musculoskeletal secondary to surgery positioning and muscle spasms. - Cannot have MRI for 6 weeks after CABG - CT cervical spine didn't show acute findings. - Neurosurgery consult appreciated - no neuro deficits at this time, plan for MRI in the future. - Continue pain management with opiates and muscle relaxer. - Encourage ambulation. - May benefit of therapeutic massage. (3) Lactic acidosis Comment: - Mild, secondary to dehydration - resolved. - No signs of infection. (4) Leukocytosis Comment: - Stress reaction to surgery - no signs of infection. (5) TSH elevation Comment: - With normal free T4 and T3 62, compatible with mild hypothyroidism - as per Cardiology recommendation would not treat now as it can induce further tachycardia and it is mild. - Repeat TFTs in 4 weeks. (6) HTN (hypertension) Comment: - Controlled. - Continue Metoprolol. (7) VIOLETA (obstructive sleep apnea) Comment: - Continue CPAP. (8) DVT prophylaxis Comment: - Lovenox. (9) Full code status Status and Disposition: Change to inpatient for further management of chest and neck pain, with risk of decompensation in the setting of recent CABG.
[2018-08-01] MEDS: Atorvastatin* 40 MG TAB PO SCH (21:02)
[2018-08-01] MEDS: Enoxaparin(*) 40 MG/0.4 ML SYR SUBCUT SCH (21:03)
[2018-08-01] MEDS: Lidocaine Patch REMOVE* 1 NOTE MISC SCH (21:07)
[2018-08-02] MEDS: Morphine TAB Extended Release (*) 15 MG TAB.ER PO SCH ×2 (03:19→15:27)
[2018-08-02] MEDS: Metoprolol Succinate XL TAB* 25 MG PO SCH ×2 (09:27→21:52)
[2018-08-02] MEDS: Omeprazole CAP* 20 MG PO SCH (09:27)
[2018-08-02] MEDS: Polyethylene Glycol 3350* 17 GM PACKET PO SCH (09:28)
[2018-08-02] MEDS: Vitamin THERAPEUTIC TAB PO SCH (09:28)
[2018-08-02] MEDS: Aspirin 81 mg CHEW TAB* 81 MG TAB.CHEW PO SCH (09:28)
[2018-08-02] MEDS: Colchicine* 0.6 MG TAB PO SCH (09:29)
[2018-08-02] MEDS: Lidocaine PATCH 5%* 1 PATCH TRANSDERM SCH (09:29)
[2018-08-02] MEDS: Bisacodyl EC TAB* 5 MG PO SCH (09:29)
[2018-08-02] MEDS: Cyclobenzaprine TAB* 10 MG PO PRN ×2 (10:50→21:52)
--- NOTE | 2018-08-02 14:54 | PN ---
Subjective Date of Service: 08/02/18 Interval History: HOSPITALIST PROGRESS NOTE Patient seen and examined at bedside. Care reviewed and d/w Man Patino RN. He feels better today. Right sided pain is still intense, but improving. Family History: Unchanged from Admission Social History: Unchanged from Admission Past Medical History: Unchanged from Admission Objective Active Medications: Aspirin (Aspirin 81 Mg Chew Tab*) 81 mg PO DAILY [facility] Last Admin: 08/02/18 09:28 Dose: 81 mg Atorvastatin Calcium (Lipitor*) 40 mg PO 2100 [facility] Last Admin: 08/01/18 21:02 Dose: 40 mg Bisacodyl (Dulcolax Ec Tab*) 5 mg PO DAILY [facility] Last Admin: 08/02/18 09:29 Dose: 5 mg Colchicine (Colcrys*) 0.6 mg PO DAILY [facility] Last Admin: 08/02/18 09:29 Dose: 0.6 mg Cyclobenzaprine HCl (Flexeril Tab*) 10 mg PO TID PRN PRN Reason: PAIN Last Admin: 08/02/18 10:50 Dose: 10 mg Enoxaparin Sodium (Lovenox(*)) 40 mg SUBCUT Q24H [facility] Last Admin: 08/01/18 21:03 Dose: 40 mg Ibuprofen (Motrin Tab*) 400 mg PO Q6H PRN PRN Reason: PAIN Last Admin: 08/01/18 17:12 Dose: 400 mg Ketorolac Tromethamine (Toradol Inj*) 30 mg IV Q6H PRN PRN Reason: PAIN Stop: 08/03/18 20:35 Last Admin: 07/31/18 11:26 Dose: 30 mg Lidocaine (Lidoderm 5% Patch*) 2 patch TRANSDERM DAILY [facility] Last Admin: 08/02/18 09:29 Dose: Not Given Magnesium Hydroxide (Milk Of Magnesia Liq*) 30 ml PO Q6H PRN PRN Reason: CONSTIPATION Last Admin: 08/01/18 17:17 Dose: 30 ml Metoprolol Succinate (Toprol Xl Tab*) 25 mg PO BID [facility] Last Admin: 08/02/18 09:27 Dose: 25 mg Morphine Sulfate (Morphine Vial*) 1 mg IV Q1H PRN PRN Reason: SEVERE PAIN Last Admin: 07/31/18 11:26 Dose: 1 mg Morphine Sulfate (Ms Contin(*)) 15 mg PO Q12H [facility] Last Admin: 08/02/18 03:19 Dose: 15 mg Multivitamins (Theragran Tab*) 1 tab PO DAILY [facility] Last Admin: 08/02/18 09:28 Dose: 1 tab Omeprazole (Prilosec Cap*) 40 mg PO DAILY [facility] Last Admin: 08/02/18 09:27 Dose: 40 mg Ondansetron HCl (Zofran Inj*) 4 mg IV Q6H PRN PRN Reason: NAUSEA/VOMITING Oxycodone/Acetaminophen (Percocet 5/325 Tab*) 2 tab PO Q4H PRN PRN Reason: SEVERE PAIN Last Admin: 08/01/18 17:14 Dose: 2 tab Oxycodone/Acetaminophen (Percocet 5/325 Tab*) 1 tab PO Q4H PRN PRN Reason: PAIN - MODERATE Last Admin: 07/30/18 02:06 Dose: 1 tab Pharmacy Profile Note (Lidocaine Patch Remove*) 1 note N/A 2100 [facility] Last Admin: 08/01/18 21:07 Dose: Not Given Polyethylene Glycol/Electrolytes (Miralax*) 17 gm PO DAILY [facility] Last Admin: 08/02/18 09:28 Dose: 17 gm Vital Signs - 8 hr 08/02/1818 08/02/18 07:26 08:00 10:50 Temperature 97.9 F Pulse Rate 93 Respiratory 20 18 18 Rate Blood Pressure 117/76 (mmHg) O2 Sat by Pulse 97 Oximetry 08/02/18 12:10 Temperature 98.2 F Pulse Rate 95 Respiratory 16 Rate Blood Pressure 114/78 (mmHg) O2 Sat by Pulse 98 Oximetry Oxygen Devices in Use Now: None Appearance: Pleasant gentleman sitting up in a recliner in NAD. 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 - Patient Problems (1) Chest pain Comment: - Multifactorial - combination of post op/incisional pain, Tamie's syndrome, and musculoskeletal pain. - Cardiology input appreciated - continue Colchicine and NSAIDs PRN - he states the pleuritic chest pain is improved. - As per Cardiology, troponin elevation is compatible with post CABG state, but if develops anginal pain and significant troponin elevation, would recommend transfer to [facility]. - Echo showed EF 50-55%, with inferior wall hypokinesis compatible with CABG. - Continue Aspirin, Atorvastatin, Metoprolol. (2) Neck pain Comment: - Likely musculoskeletal secondary to surgery positioning and muscle spasms. - Cannot have MRI for 6 weeks after CABG - CT cervical spine didn't show acute findings. - Neurosurgery consult appreciated - no neuro deficits at this time, plan for MRI in the future. - Continue pain management with opiates and muscle relaxer. - Encourage ambulation. - May benefit of therapeutic massage. (3) TSH elevation Comment: - With normal free T4 and T3 62, compatible with mild hypothyroidism - as per Cardiology recommendation would not treat now as it can induce further tachycardia and it is mild. - Repeat TFTs in 4 weeks. (4) HTN (hypertension) Comment: - Controlled. - Continue Metoprolol. (5) VIOLETA (obstructive sleep apnea) Comment: - Continue CPAP. (6) DVT prophylaxis Comment: - Lovenox. (7) Full code status Status and Disposition: Anticipate d/c in AM if pain controlled.
[2018-08-02] MEDS: Atorvastatin* 40 MG TAB PO SCH (21:52)
[2018-08-02] MEDS: Enoxaparin(*) 40 MG/0.4 ML SYR SUBCUT SCH (21:53)
[2018-08-02] MEDS: Lidocaine Patch REMOVE* 1 NOTE MISC SCH (21:58)
[2018-08-03] MEDS: Morphine TAB Extended Release (*) 15 MG TAB.ER PO SCH (03:36)
[2018-08-03] MEDS: Aspirin 81 mg CHEW TAB* 81 MG TAB.CHEW PO SCH (08:18)
[2018-08-03] MEDS: Bisacodyl EC TAB* 5 MG PO SCH (08:18)
[2018-08-03] MEDS: Omeprazole CAP* 20 MG PO SCH (08:18)
[2018-08-03] MEDS: Colchicine* 0.6 MG TAB PO SCH (08:18)
[2018-08-03] MEDS: Polyethylene Glycol 3350* 17 GM PACKET PO SCH (08:18)
[2018-08-03] MEDS: Metoprolol Succinate XL TAB* 25 MG PO SCH (08:18)
[2018-08-03] MEDS: Vitamin THERAPEUTIC TAB PO SCH (08:18)
[2018-08-03] MEDS: Lidocaine PATCH 5%* 1 PATCH TRANSDERM SCH (08:21)
[2018-08-03 10:52] VITALS: BP 106/74
--- NOTE | 2018-08-04 08:53 | DS ---
CC: Dr. Nolan Ro; Dr. Mcgarry. DISCHARGE SUMMARY: DATE OF ADMISSION: 07/30/18 DATE OF DISCHARGE: 08/03/18 PRIMARY CARE PROVIDER: Dr. Nolan Ro. CREATIVE SPECIALIST: Dr. Mcgarry. DISCHARGE DIAGNOSES: 1. 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 2. Musculoskeletal pain and spasms especially on the left trapezius area. 3. Mild hypothyroidism. SECONDARY DIAGNOSES: 1. Coronary artery disease status post multi-vessel CABG at [facility] on 07/22/18. 2. Hypertension. 3. Hyperlipidemia. 4. Obstructive sleep apnea. 5. Cervical spine osteoarthritis status post fusion in 2012. MEDICATIONS: 1. Aspirin 81 mg p.o. daily. 2. Atorvastatin 40 mg p.o. daily. 3. Plavix 75 mg p.o. daily. 4. Ibuprofen 400 mg p.o. q.6 hours p.r.n. pain. 5. Metoprolol succinate 25 mg p.o. b.i.d. 6. Omeprazole 40 mg p.o. daily. 7. Multivitamin 1 tablet p.o. daily. New Medications: 1. Dulcolax 5 mg p.o. daily, hold for loose stools. 2. Colchicine 0.6 mg p.o. daily. 3. Cyclobenzaprine 10 mg p.o. t.i.d. as needed for muscle spasms. 4. Lidocaine patch 5%, 2 patches to affected area topical daily, remove at bedtime. 5. MS Contin 15 mg p.o. q.12 hours MDD 2 tablets, dispensed 30 tablets. 6. Oxycodone/acetaminophen 5/325 mg 1 to 2 tablets p.o. q.4 hours p.r.n. pain, MDD 6 tablets, dispensed 30. 7. MiraLAX 17 g p.o. daily. HOSPITAL COURSE: Mr. Taylor is a 53-year-old male with a past medical history as stated above that recently had a CABG at [facility]. He was discharged to home and was still complaining of significant chest and back pain. He returned to the emergency room because the pain was severe. The impression was that his pain was multifactorial. He still had incisional tenderness, but he also had a retrosternal chest pain pleuritic in nature that was thought to be secondary to Tamie syndrome. He also had muscle spasms on his back, especially in the area of his left trapezius. The patient was admitted for further pain management and he was seen in consultation by Cardiology (Dr. Mcgarry). For the presumed Tamie syndrome, she recommended colchicine and NSAIDs and also adding cyclobenzaprine for his muscle spasms. He had progressive improvement but MS Contin was added, so the patient would have longer stretches without requiring p.r.n. medication and have better pain control. He also appeared to be mildly dehydrated on admission with tachycardia, hypotension, and mild lactic acid elevation, but there were no signs of infection. He responded well to IV fluids. Dr. Mcgarry felt that his troponin elevation was most likely related to his recent bypass surgery with a differential of postpericardiotomy elevations, and at that point the patient had no recurrence of his anginal pain and his echocardiogram was reassuring showing ejection fraction of 50% to 55% with postsurgical hypokinesis of the interventricular septum consistent with coronary artery bypass. She felt that the patient did not need transfer to [facility] unless he had worsening with regard to angina, EKG changes or troponin elevation. The patient continued to improve slowly, was able to move more and on 08/03/18, was felt to be medically stable for discharge. Of note is the fact the patient was found to have mild hypothyroidism with a TSH of 9.9 with a free T4 of 1.01 and a low total T3 of 62. Cardiology recommended not treating it at this time as it could cause worsening tachycardia. The plan at this point is to have his TFTs repeated in 4 weeks and at that point decide if treatment is needed. Due to his neck pain radiating to the left shoulder with his history of spinal fusion, a CT of the cervical spine was performed and it showed status post anterior cervical fusion with neuroforaminal narrowing at C5 and C6, no osseous central canal stenosis. The patient was seen in consultation by Neurosurgery ( Dr. Nam). Unfortunately, the patient cannot have an MRI for at least 6 weeks after his CABG. Dr. Nam felt that the most likely cause of the pain is muscular, but he recommends an MRI of the cervical spine when the patient is able to have one and to follow up with him as outpatient. The patient is medically stable for discharge at this time to follow up with Dr. Ro and Dr. Mcgarry as outpatient. PHYSICAL EXAM: Vital Signs: Temperature 98.4, heart rate is 87, respiratory rate is 16, oxygen saturation is 94% on room air, blood pressure is 106/74. General: The patient is a pleasant middle-aged gentleman sitting up in a recliner in no acute distress. CVS: Normal S1, S2. Regular rate and rhythm. Chest: Breath sounds bilaterally with no added sounds. Neuro: He is alert and oriented x3. Able to move all 4 extremities. DIET: Heart healthy diet. ACTIVITIES: As tolerated. DISPOSITION: Home STATUS IN HOSPITAL: Inpatient. Please keep in mind this is a summarized version of this patient's hospital stay. If you need more information, please feel free to call me at [phone] or obtain the full medical records. TIME SPENT: Approximately 45 minutes were spent to complete this discharge. [id number]/CPS #: [id number] TATI
== END 2018-08-03 12:54 | disposition home or self-care (01) | DRG 315 ==
LOC: ED 12:58 → MEDTELE 20:22 → OBSVTOIN 07-30 17:26
PROVIDERS: ADMIT Internal Medicine; ATTEND Internal Medicine
DX: I24.1 Dressler's syndrome (principal); R65.10 Systemic inflammatory response syndrome (SIRS) of non-infectious origin without acute organ dysfunction; E87.2 Acidosis; I11.9 Hypertensive heart disease without heart failure; G89.18 Other acute postprocedural pain; M25.519 Pain in unspecified shoulder; E03.9 Hypothyroidism, unspecified; I25.10 Atherosclerotic heart disease of native coronary artery without angina pectoris; E78.5 Hyperlipidemia, unspecified; G47.33 Obstructive sleep apnea (adult) (pediatric); M47.9 Spondylosis, unspecified; E86.0 Dehydration; D72.829 Elevated white blood cell count, unspecified; M62.830 Muscle spasm of back; M54.2 Cervicalgia; R74.8 Abnormal levels of other serum enzymes; K59.00 Constipation, unspecified; Z82.3 Family history of stroke; Z95.1 Presence of aortocoronary bypass graft; Z79.1 Long term (current) use of non-steroidal anti-inflammatories (NSAID); Z79.82 Long term (current) use of aspirin; Z79.891 Long term (current) use of opiate analgesic; Z79.899 Other long term (current) drug therapy; Z91.018 Allergy to other foods; Z79.02 Long term (current) use of antithrombotics/antiplatelets; Z82.49 Family history of ischemic heart disease and other diseases of the circulatory system; Z80.3 Family history of malignant neoplasm of breast
CPT/HCPCS: 36415; 71045; 71046; 72125; 74019; 80048; 80053; 81003; 82550; 82553; 83605; 83735; 83880; 84439; 84443; 84479; 84484; 85025; 85610; 85652; 85730; 86140; 93005; 93306; 99285; A9270-GY; G8978-GP-CI; G8979-GP-CH; J1650; J1885; J2060; J2270; J2543

== ENCOUNTER 2019-01-30 13:04 | Emergency (ER) | payer OTHER ==
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
[2019-01-30] MEDS ORDERED: Ondansetron INJ* 2 MG/ML VIAL IV ONE (13:29)
[2019-01-30] MEDS ORDERED: Morphine 4 MG/ML VIAL (1 ml) 4 MG/ML VIAL IV ONE (13:29)
[2019-01-30 13:41] LABS: ABS Eosinophils 0.1 10^3/ul (0-0.6); ABS Lymphocytes 1.7 10^3/ul (1.0-4.8); ABS Monocytes 0.6 10^3/ul (0-0.8); ABS Neutrophils 5.1 10^3/ul (1.5-7.7); Eosinophil % 1.5 %; Hematocrit 42 % (42-52); Lymphocyte % 22.5 %; Mean Corpuscular HGB Conc 33 g/dL (31-36); Mean Corpuscular Hemoglobin 29 pg (27-31); Mean Corpuscular Volume 88 fL (80-94); Mean Platelet Volume 10.6 fL (7.4-10.4); Platelet Count 201 10^3/uL (150-450); Red Blood Count 4.77 10^6 /uL (4.18-5.48); Red Cell Distribution Width 14 % (10-15); White Blood Count 7.6 10^3/uL (3.5-10.8)
[2019-01-30 13:49] LABS: Albumin 4.6 g/dL (3.2-5.2); Albumin/Globulin Ratio 1.6 (1-3); BUN/Creatinine Ratio 19.6 (8-20); EGFR African American 93.2 (>60); Globulin 2.8 g/dL (2-4); Total Bilirubin 0.7 mg/dL (0.2-1.0); Total Protein 7.4 g/dL (6.4-8.9)
[2019-01-30] MEDS ORDERED: Iohexol 300* (CONTRAST) 10 ML SDV IV ONE (14:29)
[2019-01-30 15:38] LABS: Urine Appearance Clear; Urine Bilirubin Negative (Negative); Urine Blood Negative (Negative); Urine Color Yellow; Urine Glucose Negative (Negative); Urine Ketones Negative (Negative); Urine Nitrite Negative (Negative); Urine Protein Negative (Negative); Urine Specific Gravity 1.021 (1.010-1.030); Urine Urobilinogen Negative (Negative)
[2019-01-30 15:59] VITALS: BP 137/84
== END 2019-01-30 15:58 | disposition home or self-care (01) ==
LOC: ED 13:04
DX: M54.6 Pain in thoracic spine (principal); M54.2 Cervicalgia; V43.52XA Car driver injured in collision with other type car in traffic accident, initial encounter; I10 Essential (primary) hypertension; Z95.1 Presence of aortocoronary bypass graft
CPT/HCPCS: 36415; 71260; 72125; 72128; 72131; 80053; 81003; 85025; 96374; 96375; 99283; J2270; J2405; Q9967

== ENCOUNTER 2019-02-08 12:40 | Emergency (ER) | payer OTHER ==
[2019-02-08 12:57] VITALS: BP 122/80
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
== END 2019-02-08 13:54 | disposition home or self-care (01) ==
LOC: UCEAST 12:40
DX: S63.501A Unspecified sprain of right wrist, initial encounter (principal); V49.9XXA Car occupant (driver) (passenger) injured in unspecified traffic accident, initial encounter; Y92.410 Unspecified street and highway as the place of occurrence of the external cause; E78.5 Hyperlipidemia, unspecified; I10 Essential (primary) hypertension; K21.9 Gastro-esophageal reflux disease without esophagitis
CPT/HCPCS: 99212; G0463

== ENCOUNTER 2019-12-03 09:06 | Emergency (ER) | payer OTHER ==
[2019-12-03 09:47] VITALS: BP 138/99
--- NOTE | 2019-12-03 11:26 | UC ---
Hand/Wrist HPI - HPI Summary HPI Summary: 54yo male presenting with right index finger pain after he dropped a "very heavy shah slab" onto it 2 weeks ago. States the pain has steadily improved but his ROM is decreased some. States Denies numbness and tingling. Denies pain at rest, only with bending the finger. Patient denies current swelling and bruising but states they were present at first. Adds that he has significant arthritis in his fingers. Has been darrell taping when finger starts to hurt. - History Of Current Complaint Chief Complaint: UCUpperExtremity Stated Complaint: FINGER INJURY Hx Obtained From: Patient Pain Intensity: 3 Pain Scale Used: 0-10 Numeric - Allergies/Home Medications Allergies/Adverse Reactions: Allergies Allergy/AdvReac Type Severity Reaction Status Date / Time lactose Allergy GI Upset Verified 12/03/19 09:48 ENVIRONMENTAL Allergy ITCHY Uncoded 12/03/19 09:48 WATERY EYES Home Medications: Home Medications Aspirin 81 mg PO DAILY 07/29/18 [History Confirmed 12/03/19] Clopidogrel Bisulfate [Plavix] 75 mg PO DAILY 07/29/18 [History Confirmed ] Omeprazole CAP (NF) [Prilosec CAP* 20 MG] 40 mg PO DAILY cap.dr 08/03/18 [Rx Confirmed 12/03/19] Vitamin THERAPEUTIC TAB* [Theragran TAB*] 1 tab PO DAILY tab 08/03/18 [Rx Confirmed 12/03/19] Rosuvastatin Calcium 40 mg PO DAILY 01/30/19 [History Confirmed 12/03/19] Ezetimibe 1 tab PO DAILY 12/03/19 [History Confirmed 12/03/19] Famotidine TAB* [Pepcid 20 MG TAB*] 1 tab PO DAILY 12/03/19 [History Confirmed 12/03/19] PMH/Surg Hx/FS Hx/Imm Hx Endocrine History: Dyslipidemia Cardiovascular History: Hypertension GI/ History: Gastroesophageal Reflux - Surgical History Surgical History: Yes Surgery Procedure, Year, and Place: APNEA CORRECTION TONSILS & SOFT PALATE. DOUBLE TESTICULOR TORSON. C5-6-7 - FUSION 2012. RIGHT SHOULDER 09/2014. quad bypass 06/24/18 [place] - Family History Known Family History: Positive: Other - Father of strokes Negative: Hypertension, Diabetes - Social History Alcohol Use: None Substance Use Type: None Smoking Status (MU): Never Smoked Tobacco Have You Smoked in the Last Year: No - Immunization History Most Recent Influenza Vaccination: 2018 Most Recent Pneumonia Vaccination: never Review of Systems All Other Systems Reviewed And Are Negative: No Constitutional: Positive: Negative Skin: Positive: Negative Respiratory: Positive: Negative Cardiovascular: Positive: Negative Gastrointestinal: Positive: Negative Musculoskeletal: Positive: Arthralgia - right index finger, Decreased ROM - R index finger flexion. Negative: Edema Neurological/Mental Status: Positive: Negative. Negative: Paresthesia, Numbness Physical Exam - Summary Physical Exam Summary: Vital Signs Reviewed: Yes A+Ox3, no distress Eyes: Conjunctiva Clear ENT: Hearing grossly normal neck: supple Respiratory: Positive: No respiratory distress, No accessory muscle use Cardiovascular: skin color reflect adequate perfusion, cap refill < 2 sec Musculoskeletal Exam: HDZ x 4 without difficulty, no TTP of right index finger, decreased flexion of R index finger d/t pain, no edema, no erythema or ecchymosis, heberdens nodes present Neurological: Positive: Alert, ambulatory without difficulty Psychological: Positive: age appropriate behavior Skin: Positive: no rash, no ecchymosis Vital Signs: Initial Vital Signs Temp 98.7 F 12/03/19 09:44 Pulse 83 12/03/19 09:44 Resp 20 12/03/19 09:44 BP 138/99 12/03/19 09:44 Pulse Ox 100 12/03/19 09:44 Diagnostics - Radiology R index finger Radiology Interpretation Completed By: Radiologist Summary of Radiographic Findings: IMPRESSION: Degenerative changes of the interphalangeal joint of the right index finger. No fracture is noted. Hand/Wrist Course/Dx - Course Course Of Treatment: No fracture noted of right index finger on radiograph. Discussed degenerative changes and instructed to continue with symptomatic treatment. I provided patient with referral to orthopedics if pain not resolving within next 2-3 weeks. Patient voiced understanding and agreed with treatment plan. - Differential Dx/Diagnosis Differential Diagnosis/HQI/PQRI: Contusion, Fracture, Sprain, Strain Provider Diagnosis: Crushing injury of right index finger, initial encounter Discharge ED - Sign-Out/Discharge Documenting (check all that apply): Patient Departure All imaging exams completed and their final reports reviewed: Yes - Discharge Plan Condition: Stable Disposition: HOME Patient Education Materials: Crush Injury (ED) Referrals: Nolan Ro MD [Primary Care Provider] - Corey Sheets MD [Medical Doctor] - Additional Instructions: As discussed, your radiographs did not reveal any fractures today. Continue to keep the finger mobile and darrell tape if pain increases. Follow up with the orthopedic referral listed below if your pain does not improve or worsens within the next few weeks. - Billing Disposition and Condition Condition: STABLE Disposition: Home - Attestation Statements Provider Attestation: I was available for consult. This patient was seen by the EMILIANO. The patient was not presented to, seen by, or examined by me. -Yahir
== END 2019-12-03 10:37 | disposition home or self-care (01) ==
LOC: UCEAST 09:06
DX: S67.190A Crushing injury of right index finger, initial encounter (principal); M19.041 Primary osteoarthritis, right hand; W20.8XXA Other cause of strike by thrown, projected or falling object, initial encounter; Y92.9 Unspecified place or not applicable; E78.5 Hyperlipidemia, unspecified; I10 Essential (primary) hypertension; K21.9 Gastro-esophageal reflux disease without esophagitis; Z95.1 Presence of aortocoronary bypass graft; Z79.82 Long term (current) use of aspirin; Z79.899 Other long term (current) drug therapy
CPT/HCPCS: 73140; 99211; G0463

== ENCOUNTER 2022-07-12 17:39 | Inpatient (IN) ==
[2022-07-12 18:06] LABS: ABS Basophils 0.1 10^3/ul (0-0.2); ABS Eosinophils 0.2 10^3/ul (0-0.6); ABS Lymphocytes 3.9 10^3/ul (1.0-4.8); ABS Monocytes 0.7 10^3/ul (0-0.8); ABS Neutrophils 4.4 10^3/ul (1.5-7.7); Eosinophil % 1.9 %; Hematocrit 41 % (42-52); Hemoglobin 13.7 g/dL (14.0-18.0); Lymphocyte % 42.3 %; Mean Corpuscular HGB Conc 33 g/dL (31-36); Mean Corpuscular Hemoglobin 30 pg (27-31); Mean Corpuscular Volume 90 fL (80-94); Platelet Count 233 10^3/uL (150-450); Red Blood Count 4.55 10^6 /uL (4.18-5.48); Red Cell Distribution Width 13 % (10-15); White Blood Count 9.2 10^3/uL (3.5-10.8)
[2022-07-12] MEDS ORDERED: Iodixanol (CONTRAST) 320 MG/ML 100 ML SDV IV ONE (18:20)
[2022-07-12 18:26] LABS: Activated Partial Thrombo Time 25.9 seconds (26.0-38.0); INR 1.05 (0.89-1.11)
[2022-07-12 18:33] LABS: Albumin 4.8 g/dL (3.2-5.2); Albumin/Globulin Ratio 2.5 (1-3); Calcium 9.5 mg/dL (8.6-10.3); Globulin 1.9 g/dL (2-4); HDL Cholesterol 48.9 mg/dL; Potassium 3.4 mmol/L (3.5-5.0); Total Bilirubin 0.6 mg/dL (0.2-1.0); Total Protein 6.7 g/dL (6.4-8.9); eGFR CKD-EPI 93.3 (>60)
[2022-07-12] MEDS ORDERED: TENECTEPLASE 50 MG VIAL KIT 5 MG/ML (reconstituted) IV ONE ×2 (18:37)
[2022-07-13 01:01] LABS: Urine Appearance Clear; Urine Bilirubin Negative (Negative); Urine Blood Negative (Negative); Urine Color Yellow; Urine Glucose Negative (Negative); Urine Ketones Negative (Negative); Urine Nitrite Negative (Negative); Urine Protein Negative (Negative); Urine Specific Gravity 1.027 (1.002-1.030); Urine Urobilinogen Negative (Negative)
[2022-07-13 06:40] LABS: Albumin 4.1 g/dL (3.2-5.2); Albumin/Globulin Ratio 2.1 (1-3); Calcium 9.3 mg/dL (8.6-10.3); Potassium 3.8 mmol/L (3.5-5.0); Total Bilirubin 0.3 mg/dL (0.2-1.0); Total Protein 6.1 g/dL (6.4-8.9); eGFR CKD-EPI 102.3 (>60)
[2022-07-13] MEDS ORDERED: Potassium Chlor 20 meq TAB.ER PO ONE (06:57)
[2022-07-14 04:43] LABS: Hematocrit 41 % (42-52); Hemoglobin 13.4 g/dL (14.0-18.0); Mean Corpuscular HGB Conc 33 g/dL (31-36); Mean Corpuscular Hemoglobin 30 pg (27-31); Mean Corpuscular Volume 91 fL (80-94); Mean Platelet Volume 11.3 fL (7.4-10.4); Platelet Count 182 10^3/uL (150-450); Red Cell Distribution Width 13 % (10-15); White Blood Count 6.4 10^3/uL (3.5-10.8)
[2022-07-14 04:48] LABS: ABS Eosinophils 0.2 10^3/ul (0-0.6); ABS Lymphocytes 1.7 10^3/ul (1.0-4.8); ABS Monocytes 0.5 10^3/ul (0-0.8); ABS Neutrophils 3.8 10^3/ul (1.5-7.7); Eosinophil % 3.2 %; Lymphocyte % 27.3 %; Nucleated Red Blood Cells % 0.1
[2022-07-14 05:23] LABS: Albumin 4.1 g/dL (3.2-5.2); Albumin/Globulin Ratio 2.2 (1-3); Calcium 9.1 mg/dL (8.6-10.3); Globulin 1.9 g/dL (2-4); Potassium 4.2 mmol/L (3.5-5.0); Total Bilirubin 0.5 mg/dL (0.2-1.0); eGFR CKD-EPI 103.4 (>60)
[2022-07-14 12:26] VITALS: BP 124/81
== END 2022-07-14 15:50 | disposition home or self-care (01) | DRG 63 ==
LOC: ED 17:39 → EDHOLD 20:09 → SUATTDRO 20:09 → ICU 21:20
PROVIDERS: ADMIT Internal Medicine; ATTEND Internal Medicine Critical Care Medicine